=== PATIENT | female | born 1970 | race African-American/Black ===

== ENCOUNTER 2016-10-31 07:18 | Day surgery (SDC) | payer OTHER ==
[~2016-10-31] VITALS: Ht 162.6 cm; Wt 71.0 kg
[2016-10-31] VITALS (19 sets, daily range): BP systolic 104–138; BP diastolic 75–91; PULSE 94–122; RESP 9–27; Ht 162.6 cm; Wt 71.0 kg
[~2016-10-31 07:18] MED LIST: [UNRECOGNIZED DRUG - CODE]
[2016-10-31] MEDS ORDERED: BENA20TA48 PO (09:24)
[2016-10-31] MEDS ORDERED: LORA10CA PO (09:24)
[2016-10-31] MEDS ORDERED: SOD CHLORIDE 0.9% 1,000 ML IV SCH (12:30)
[2016-10-31] MEDS ORDERED: CEFAZOLIN 1 GM/50 ML (PMX) 50 ML IVPB ONE (12:30)
[2016-10-31] MEDS ORDERED: PROPOFOL 20 ML ONE (15:11)
[2016-10-31] MEDS ORDERED: MIDAZOLAM 1 MG/ML 2 ML INJ ONE (15:11)
[2016-10-31] MEDS ORDERED: FENTAnyl 50 MCG/ML VIAL ONE (15:12)
[2016-10-31] MEDS ORDERED: PHENYLephrine (100 MCG/ML) 5ML SYG ONE ×3 (15:26→16:10)
[2016-10-31] MEDS ORDERED: ISOSULFAN BLUE 1% 5 ML INJ SC ONE (15:28)
[2016-10-31] MEDS ORDERED: CEFAZOLIN 1 GM INJ ONE (15:28)
[2016-10-31] MEDS ORDERED: FAMOTIDINE 20 MG INJ ONE (15:35)
[2016-10-31] MEDS ORDERED: ONDANSETRON 4 MG INJ ONE (15:35)
[2016-10-31] MEDS ORDERED: DEXAMETHASONE 4 MG/ML 1 ML INJ ONE (15:35)
[2016-10-31] MEDS ORDERED: MEPERIDINE 25 MG INJ IV PRN (16:30)
[2016-10-31] MEDS ORDERED: DIPHENHYDRAMINE 50 MG INJ IV PRN (16:30)
[2016-10-31] MEDS ORDERED: HYDROmorphONE (0.2 MG/ML) 10ML SYG IV PRN (16:30)
[2016-10-31] MEDS ORDERED: PROCHLORPERAZINE 10 MG INJ IV PRN (16:30)
[2016-10-31] MEDS ORDERED: ACETAMINOPHEN 1000MG/100ML IV 100 ML IVPB PRN (17:00)
[2016-10-31] MEDS ORDERED: ONDANSETRON 4 MG INJ IV PRN (17:00)
[2016-10-31] MEDS: HYDROmorphONE (0.2 MG/ML) 10ML SYG IV PRN ×5 (17:06→18:45)
--- NOTE | 2016-10-31 20:17 | OPR ---
DATE OF OPERATION: 10/31/2016 PREOPERATIVE DIAGNOSIS: Invasive cancer, left breast. POSTOPERATIVE DIAGNOSIS: Invasive cancer, left breast. OPERATION PERFORMED: Left needle-directed partial mastectomy and axillary dissection utilizing sentinel lymph node technique. ANESTHESIA: General. ANESTHESIOLOGIST: Hermes Harvey DO SURGEON: Marcus Gustafson MD TEAROOM HOSTESS: Markell John MD INDICATIONS FOR PROCEDURE: The patient is a 46-year-old female who presented with a greater than 2 cm tumor in her left breast. She was HER2-positive and medical oncologist elected to treat her with neoadjuvant chemotherapy. She completed her chemotherapy with very good response. She was counseled as to the risks versus benefits of partial mastectomy and axillary dissection utilizing sentinel lymph node technique. She consented and was scheduled for surgery. DESCRIPTION OF PROCEDURE: On the morning of surgery, the patient presented to [facility] where she underwent localization of the previously placed biopsy clip performed by attending [facility] radiologist, Dr. Laurence Posey. Subsequently, she was brought to the operating theater, placed under general anesthesia. The left breast and axillary regions were prepped and draped in usual sterile fashion. Approximately 4 mL of 1% Lymphazurin blue dye was then injected peritumorally and the breast was gently massaged for approximately 12 minutes. A 4 cm incision was then made in the left axillary hairline. Subcutaneous tissue was dissected with cautery down through the clavipectoral fascia. A dye-stained lymphatic was identified and found to be traced to what appeared to be enlarged lymph nodes. There were several other lymph nodes noted in this area and Dr. Gustafson made the decision to resect these lymph nodes with blunt dissection along the chest wall. The long thoracic nerve was identified and kept out of harm's way. More superiorly, the axillary vein and thoracodorsal neurovascular bundle was identified and kept out of harm's way. Node bearing tissue between the 2 nerves was then meticulously dissected with the LigaSure device. In this fashion level 1 and level 2 lymph nodes were harvested. Final connective tissue attachments at latissimus dorsi muscle were then transected with cautery. Specimen was removed and sent for permanent pathologic analysis. The wound was irrigated. Minimal bleeding was controlled with cautery, and a #10 flat Landry-Uribe drain was then brought through the left mid axillary line, cut to size, laid within the axilla and secured in place with 2-0 nylon suture in the standard fashion. The skin was then reapproximated with 4-0 Vicryl suture in subcuticular fashion and Dermabond was applied. Attention was then directed to performing the partial mastectomy. The previously placed localization wire was in the upper outer quadrant of the breast. A curvilinear incision was made in this area and subcutaneous tissue was dissected with cautery. The skin edges were then elevated with skin hooks and wide circumferential dissection of the tissue associated with the wire then took place using cautery. Specimen was elevated, transected, oriented, and sent for radiographic confirmation of capture of the clip. Capture was confirmed. Specimen was then sent for permanent pathologic analysis. The wound was irrigated. Minimal bleeding was controlled with cautery, and the skin was reapproximated with 4-0 Vicryl suture in subcuticular fashion and Dermabond was applied. The patient tolerated the procedure well. Estimated blood loss was 50 mL. There were no complications. The patient was transported in stable condition to the recovery room where circumferential compression dressing was applied. Dictated By: MARCUS BUITRAGO/DENNIS Conf#: [id number] DID#: [id number] ROBIN
[2016-10-31] MEDS: D5W-0.45 NACL + KCL 20 MEQ 1,000 ML IV SCH ×2 (20:41→23:54)
[2016-11-01] MEDS: morphine 2 MG INJ IV PRN ×3 (01:18→07:58)
--- NOTE | 2016-11-01 02:59 | HP ---
DATE OF ADMISSION: 10/31/2016 CHIEF COMPLAINT AND HISTORY OF PRESENT ILLNESS: The patient is a 46-year-old female with history of left breast tumor, status post biopsy which was positive for cancer. The patient underwent neoadju vant chemotherapy and after completion of chemotherapy, the patient was noted to have a good respons e. The patient was brought to the hospital today and underwent left needle-directed partial mastect snatiago and axillary dissection. The patient postoperatively had significant pain; therefore, the patie nt is being admitted for further evaluation and management. The patient denied any history of heada miriam, dizziness, syncope. No history of sore throat. No history of recent fever or chills. No hist ory of abdominal pain. No history of chest pain. The patient does have history of hypertension for which she has been taking benazepril and occasionally takes Claritin for allergies. No reported he adache, dizziness, syncope. No history of focal weakness. REVIEW OF SYSTEMS: Rest of review of systems unremarkable. PAST MEDICAL HISTORY: As stated above. ALLERGIES: NONE. SOCIAL HISTORY: No smoking, no alcohol. FAMILY HISTORY: Noncontributory. PHYSICAL EXAMINATION: GENERAL: The patient is conscious, awake, alert. VITAL SIGNS: Temperature 98.5, pulse 95, respirations 15, blood pressure 127/80, O2 saturation 100% on room air. HEENT: Conjunctivae and lids are normal. Oropharynx clear. NECK: Supple. No mass, no thyromegaly. CHEST: Fairly clear. No use of accessory muscles. CARDIOVASCULAR: S1, S2 normal. No murmur, gallop, or rub. ABDOMEN: Soft, nondistended, nontender. Bowel sounds present. EXTREMITIES: No leg edema. NEUROLOGIC: The patient is awake, alert, fairly oriented with no gross focal deficit. IMPRESSION: 1. Left breast cancer status post neoadjuvant chemotherapy and today underwent left partial mastect santiago and axillary dissection. 2. Hypertension. PLAN: The patient admitted to the medical floor. The patient will be started on a clear liquid t, which will be advanced as tolerated. The patient's pain will be controlled with IV Dilaudid and IV morphine. We will hold off on benazepril for now as the patient's blood pressure is reasonably c ontrolled. The patient will use SCDs for DVT prophylaxis. The patient meanwhile will be given IV f luids and IV Zofran on p.r.n. basis for nausea and vomiting. Further recommendations will depend on patient's hospital course. Discharge planning once the patient is cleared by surgery. Dictated By: SUSAN MORENO/DENNIS Conf#: [id number] DID#: [id number]
[2016-11-01] MEDS: D5W-0.45 NACL + KCL 20 MEQ 1,000 ML IV SCH (05:13)
[2016-11-01 07:45] VITALS: BP 120/72; RESP 18
[2016-11-01] MEDS ORDERED: HYDROCODONE/APAP (5/325) TAB NGT PRN ×2 (11:30)
[2016-11-01 12:34] LABS: ADD SCAN DIFF NO
[2016-11-01 12:47] LABS: BASOPHILS % 0.2 % (0.0-2.0); EOSINOPHILS % 0.6 % (0.0-7.0); HEMATOCRIT 26.5 % (37.0-47.0); HEMOGLOBIN 8.5 g/dl (12.0-16.0); LYMPHOCYTES # 1.9 10^3/ul (0.8-2.9); LYMPHOCYTES % 36.9 % (15.0-51.0); MEAN CORPUSCULAR HEMOGLOBIN 33.9 pg (29.0-33.0); MEAN CORPUSCULAR HGB CONC 32.1 g/dl (32.0-37.0); MEAN CORPUSCULAR VOLUME 105.6 fl (82.0-101.0); MEAN PLATELET VOLUME 8.8 fl (7.4-10.4); MONOCYTE # 0.7 10^3/ul (0.3-0.9); NEUTROPHIL # 2.5 10^3/ul (1.6-7.5); NEUTROPHILS % 49.1 % (39.0-77.0); PLATELET COUNT 238 10^3/UL (140-415); RED BLOOD COUNT 2.51 10^6/ul (4.20-5.40); RED CELL DISTRIBUTION WIDTH 15.5 % (11.5-14.5); WHITE BLOOD COUNT 5.2 10^3/ul (4.8-10.8)
[2016-11-01 13:21] LABS: CALCIUM 8.6 mg/dl (8.4-10.2); CREATININE 0.63 mg/dl (0.44-1.00); POTASSIUM 3.8 mmol/L (3.5-5.1)
--- NOTE | 2016-11-01 15:10 | PN ---
DATE: 11/01/2016 Postop day #1 status post left partial mastectomy with axillary dissection. SUBJECTIVE: Feels okay. No problem. Some continuous pain in the axillary area on the left side whi ch is being held by medication but does not go totally away. PHYSICAL EXAMINATION: VITAL SIGNS: Temperature 98.6, heart rate 86, respiration 18, blood pressure 120/72, saturation 96% on room air. LABORATORY: WBC 5200, hemoglobin 8.5, hematocrit 36.5. BUN and creatinine, sodium and potassium ar e normal. The dressing is intact. The patient can move left arm, left elbow and left hand fingers completely. ASSESSMENT: Postoperative day #1 status post left partial mastectomy and axillary dissection. PLAN: The patient is stable. She has tolerated food and has been out of bed. No fever. She can be discharged home. The instruction for care of the Landry-Uribe was given to the patient by me an d by the nurse and she stated that she understands that she is going to change the drain it at home and record it. She is going to call Dr. Gustafson' office and make an appointment for followup. Dictated By: ONEL ALDANA MD PS/NTS Conf#: [id number] DID#: [id number]
--- NOTE | 2016-11-04 05:30 | DS ---
DATE OF ADMISSION: 10/31/2016 DATE OF DISCHARGE: 11/01/2016 FINAL DIAGNOSES: 1. Left breast cancer status post neoadjuvant chemotherapy and left partial mastectomy and axillary dissection. 2. Hypertension. For history and physical, please refer to the history and physical from 10/31/2016. HOSPITAL COURSE: The patient is a 46-year-old female with history of left breast tumor with biopsy confirmed cancer. The patient underwent neoadjuvant chemotherapy with good response. The patient w as brought to the hospital and underwent left needle-directed partial mastectomy and axillary dissec tion. Postoperatively, the patient experienced significant pain and was admitted for further evalua tion and management. The patient was given IV morphine and Tylenol for pain which was subsequently switched to [place]. Th e patient was also given Zofran p.r.n. for nausea. The patient's condition gradually improved, pain was well controlled, and the patient was discharged home. CONDITION ON DISCHARGE: Hemodynamically stable. ACTIVITY: As patient tolerates. DIET: 2 g sodium diet. DISCHARGE MEDICATIONS: The patient was given prescription for [place] p.r.n. for pain. The patient i s continued on her home medications of benazepril and Claritin. The patient is instructed to follow up with Dr. Gustafson in postoperative appointment next week. Interdisciplinary plan of care was established for this patient. Plan of care was discussed with Dr Jeyson Byrd. Dictated By: WILL DO INSIDE SALES ACCOUNT EXECUTIVE for SUSAN BYRD MD SR/NTS Conf#: [id number] DID#: [id number]
== END 2016-11-01 15:41 | disposition home or self-care (01) ==
LOC: SDS 07:18 → PP2 18:56 → SDS 11-01 15:41
PROVIDERS: ATTEND Surgery Surgical Oncology
DX: C50.912 Malignant neoplasm of unspecified site of left female breast (principal)
CPT/HCPCS: 19301; 38500; 38792; 80048; 85025; 88307; J0690; J1100; J1170; J2250; J2270; J2370; J2405; J3010; J3480; Z7512; Z7610; Q9968

== ENCOUNTER 2016-11-13 23:13 | Inpatient (IN) | payer OTHER ==
[~2016-11-13] VITALS: Ht 162.6 cm; Wt 71.7 kg
[~2016-11-13 23:13] MED LIST changes: +BENA20TA48 PO; +LORA10CA PO; -[UNRECOGNIZED DRUG - CODE]
[2016-11-14] MEDS ORDERED: CEFTRIAXONE 1 GM/50 ML (PMX) 50 ML IVPB STA (01:26)
[2016-11-14] MEDS ORDERED: VANCOMYCIN 1 GM (PMX) 250 ML IVPB ONE (01:30)
--- NOTE | 2016-11-14 01:31 | ERA ---
ER Documentation Chief Complaint Date/Time DATE: 11/14/16 TIME: 01:28 Chief Complaint left breast incision is leaking and not going to the drainage tube HPI Patient is a 46-year-old female 2 weeks status post lumpectomy with lymph node dissection of the left breast who presents with leaking of fluid from around a drain site. The patient saw her surgeon, Dr. Gustafson yesterday, and he was able to the tubing of debris, and the drain was draining normally at that time. Prior to yesterday, the drain bulb would require emptying every 3 hours. It is now filling up only once to twice every day, but she is soaking through multiple layers of clothing. She denies fever, vomiting. She has not noticed any increased redness or swelling to the area. ROS All systems reviewed and are negative except as per history of present illness. Medications Home Meds Reported Medications Loratadine* (Claritin*) 10 Mg Capsule, 10 MG PO DAILY, CAP 10/31/16 Benazepril Hcl* (Benazepril Hcl*) 20 Mg Tablet, 20 MG PO DAILY, #30 TAB 10/31/16 Allergies Allergies: Coded Allergies: No Known Drug Allergies (Verified Allergy, Mild, 10/31/16) PMhx/Soc Past medical history: Breast cancer Past surgical history: Lumpectomy with lymph node dissection Social history: Occasional alcohol, no tobacco History of Surgery: Yes (tonsillectomy @ 21 yo, lumpectomy/lymphectomy 10/31/16) Anesthesia Reaction: No Hx Neurological Disorder: No Hx Respiratory Disorders: Yes (bronchitis ) Hx Cardiac Disorders: Yes (htn ) Hx Psychiatric Problems: No Hx Miscellaneous Medical Probl: Yes (left breast ca, last chemo 08/2016) Hx Alcohol Use: Yes (occasionally ) Hx Substance Use: No Hx Tobacco Use: No Smoking Status: Never smoker FmHx Family History: No coronary disease, No diabetes Physical Exam Vitals Vital Signs Date Time Temp Pulse Resp B/P Pulse Ox O2 Delivery O2 Flow Rate FiO2 11/14/16 02:30 91 17 103/64 100 Room Air 11/14/16 02:00 98.2 89 18 99/63 100 Room Air 11/13/16 23:20 97.8 107 20 114/77 98 Physical Exam Const: Alert, no acute distress Head: Atraumatic Eyes: Normal Conjunctiva, no pallor, no icterus ENT: Normal External Ears, Nose and Mouth. Neck: Full range of motion..~ No meningismus. Resp: Clear to auscultation bilaterally Cardio: Mild tachycardia, regular rhythm, no murmurs Breast: Erythema and warmth spreading to the mid breast, no crepitance. Small amount of purulent drainage at the drain site and large quantity of serosanguineous drainage. Abd: Soft, non tender, non distended. Skin: No petechiae or rashes Back: No midline or flank tenderness Ext: No cyanosis, or edema Neur: Awake and alert Psych: Normal Mood and Affect Result Diagram: 11/14/16 0145 11/14/16 0145 Results 24 hrs Laboratory Tests Test 11/14/16 01:45 11/14/16 02:15 White Blood Count 14.910^3/ul Red Blood Count 2.6910^6/ul Hemoglobin 9.3g/dl Hematocrit 27.5% Mean Corpuscular Volume 102.2fl Mean Corpuscular Hemoglobin 34.6pg Mean Corpuscular Hemoglobin Concent 33.8g/dl Red Cell Distribution Width 14.9% Platelet Count 73789^3/UL Mean Platelet Volume 9.7fl Neutrophils % 79.6% Lymphocytes % 10.4% Monocytes % 8.7% Eosinophils % 0.4% Basophils % 0.1% Nucleated Red Blood Cells % 0.0/100WBC Neutrophils # 11.910^3/ul Lymphocytes # 1.610^3/ul Monocytes # 1.310^3/ul Eosinophils # 0.110^3/ul Basophils # 0.010^3/ul Nucleated Red Blood Cells # 0.010^3/ul Prothrombin Time 13.9Sec Prothrombin Time Ratio 1.1 INR International Normalized Ratio 1.07 Activated Partial Thromboplast Time 29.4Sec Sodium Level 133mmol/L Potassium Level 3.2mmol/L Chloride Level 97mmol/L Carbon Dioxide Level 27mmol/L Anion Gap 12 Blood Urea Nitrogen 15mg/dl Creatinine 0.85mg/dl Glucose Level 112mg/dl Lactic Acid Level 0.7mmol/L Calcium Level 8.9mg/dl Total Bilirubin 0.1mg/dl Direct Bilirubin 0.00mg/dl Indirect Bilirubin 0.1mg/dl Aspartate Amino Transf (AST/SGOT) 19IU/L Alanine Aminotransferase (ALT/SGPT) 25IU/L Alkaline Phosphatase 64IU/L Total Protein 6.8g/dl Albumin 3.3g/dl Globulin 3.50g/dl Albumin/Globulin Ratio 0.94 Serum HCG, Qualitative NEGATIVE Urine Color LT. YELLOW Urine Clarity CLEAR Urine pH 5.5 Urine Specific Bowler 1.010 Urine Ketones NEGATIVE Urine Nitrite NEGATIVE Urine Bilirubin NEGATIVE Urine Urobilinogen 0.2 E.U./dL Urine Leukocyte Esterase 1+ Urine Microscopic RBC 0-2/HPF Urine Microscopic WBC 5-10/HPF Urine Squamous Epithelial Cells FEW Urine Bacteria RARE Urine Hemoglobin NEGATIVE Urine Glucose NEGATIVE% Urine Total Protein NEGATIVE Current Medications Medications (Trade) Dose Ordered Sig/Ramses Route PRN Reason Start Time Stop Time Status Last Admin Dose Admin Vancomycin HCl 250 ml @ 125 mls/hr ONCE ONCE IVPB 11/14/16 01:30 11/14/16 03:29 11/14/16 02:20 Ceftriaxone Sodium (Rocephin) 50 ml @ 100 mls/hr ONCE STAT IVPB 11/14/16 01:26 11/14/16 01:55 DC 11/14/16 01:55 Morphine Sulfate (morphine) 6 mg ONCE ONCE IV 11/14/16 02:00 11/14/16 02:01 DC 11/14/16 01:46 Ondansetron HCl (Zofran Inj) 4 mg ONCE STAT IV 11/14/16 01:43 11/14/16 01:44 DC 11/14/16 01:46 Hydromorphone HCl 1 mg 1 mg ONCE ONCE IV 11/14/16 02:22 11/14/16 02:23 DC 11/14/16 02:26 Sodium Chloride (NS) 1,000 ml @ 1,000 mls/hr Q1H ONCE IV 11/14/16 02:30 11/14/16 03:29 11/14/16 02:26 Ondansetron HCl (Zofran Inj) 4 mg BRIDGE ORDER PRN IV NAUSEA AND/OR VOMITING 11/14/16 03:00 11/15/16 02:59 Acetaminophen (Tylenol Tab) 650 mg ER BRIDGE PRN PO MILD PAIN/FEVER 11/14/16 03:00 11/15/16 02:59 Procedures/MDM EKG read by me: Time 224, rate 94 Rhythm: Normal sinus [place]: Normal Intervals: Normal ST-T waves: no ischemic changes Ectopy: No Q-waves: No Impression: No evidence of ischemia or arrhythmia, low voltage MDM: Patient is a 46-year-old female with recent lumpectomy and lymph node dissection of left breast who presents to the ER with drainage of large quantity of fluid from the surgical site and clogged strain. There is a small amount of purulent drainage from the wound site, and there is erythema and warmth of the breast. This is suggestive of infected seroma with cellulitis. Patient was given IV antibiotics. Blood cultures and wound culture were sent. IV fluids were given. There is no evidence of sepsis. The patient will be admitted for IV antibiotics and surgical consultation with Dr. Gustafson. I discussed the case with Dr. Hanson, who will admit the patient. Departure Diagnosis: Primary Impression: Cellulitis of breast Additional Impressions: Seroma infection, postoperative Hypokalemia Condition: Stable MIGUEL CONCEPCION MD November 14, 2016 01:31
[2016-11-14] MEDS ORDERED: ONDANSETRON 4 MG INJ IV STA (01:43)
[2016-11-14 02:00] VITALS: TEMP 98.2
[2016-11-14] MEDS ORDERED: morphine 10 MG INJ IV ONE (02:00)
[2016-11-14 02:04] LABS: ADD SCAN DIFF NO
[2016-11-14 02:07] LABS: BASOPHILS % 0.1 % (0.0-2.0); EOSINOPHILS # 0.1 10^3/ul (0.0-0.5); EOSINOPHILS % 0.4 % (0.0-7.0); HEMATOCRIT 27.5 % (37.0-47.0); HEMOGLOBIN 9.3 g/dl (12.0-16.0); LYMPHOCYTES # 1.6 10^3/ul (0.8-2.9); LYMPHOCYTES % 10.4 % (15.0-51.0); MEAN CORPUSCULAR HEMOGLOBIN 34.6 pg (29.0-33.0); MEAN CORPUSCULAR HGB CONC 33.8 g/dl (32.0-37.0); MEAN CORPUSCULAR VOLUME 102.2 fl (82.0-101.0); MEAN PLATELET VOLUME 9.7 fl (7.4-10.4); MONOCYTE # 1.3 10^3/ul (0.3-0.9); MONOCYTES % 8.7 % (0.0-11.0); NEUTROPHIL # 11.9 10^3/ul (1.6-7.5); NEUTROPHILS % 79.6 % (39.0-77.0); PLATELET COUNT 227 10^3/UL (140-415); RED BLOOD COUNT 2.69 10^6/ul (4.20-5.40); RED CELL DISTRIBUTION WIDTH 14.9 % (11.5-14.5); WHITE BLOOD COUNT 14.9 10^3/ul (4.8-10.8)
[2016-11-14 02:21] LABS: INR 1.07; PROTIME 13.9 Sec (12.2-14.2); PT RATIO 1.1
[2016-11-14 02:22] LABS: PARTIAL THROMBOPLASTIN TIME 29.4 Sec (25.0-35.0)
[2016-11-14] MEDS ORDERED: HYDROmorphONE 1 MG/ML SYG IV ONE (02:22)
[2016-11-14 02:26] LABS: ALBUMIN 3.3 g/dl (3.3-4.9); ALBUMIN/GLOBULIN RATIO 0.94; BILIRUBIN,INDIRECT 0.1 mg/dl (0-1.1); BILIRUBIN,TOTAL 0.1 mg/dl (0.2-1.3); CALCIUM 8.9 mg/dl (8.4-10.2); CREATININE 0.85 mg/dl (0.44-1.00); POTASSIUM 3.2 mmol/L (3.5-5.1); TOTAL PROTEIN 6.8 g/dl (6.1-8.1)
--- NOTE | 2016-11-14 02:26 | RADRPT ---
PROCEDURE: XR Chest. CLINICAL INDICATION: Sepsis. TECHNIQUE: Single frontal chest x-ray. COMPARISON: None. FINDINGS: Right internal jugular central venous line tip in the SVC is present.. There is no congestive heart failure.. There is minimal right basilar atelectasis. No focal infiltrate is seen. There is no pl eural effusion. There is no pneumothorax. The osseous structures are unremarkable. IMPRESSION: Right internal jugular central line. Minimal right basilar atelectasis. No definite pneumonia. RPTAT: HMVK .Toribio Linda MD, Date Time Electronically viewed and signed by .Toribio Linda MD, on 11/14/2016 02:26 .K/
[2016-11-14] MEDS ORDERED: SOD CHLORIDE 0.9% 1,000 ML IV ONE (02:30)
[2016-11-14 02:33] LABS: ADD UMIC YES; URINE BILIRUBIN (Dip) NEGATIVE (NEGATIVE); URINE BLOOD (Dip) NEGATIVE (NEGATIVE); URINE COLOR LT. YELLOW (YELLOW); URINE GLUCOSE (Dip) NEGATIVE (NEGATIVE); URINE KETONES (Dip) NEGATIVE (NEGATIVE); URINE LEUKOCYTE ESTERASE (Dip) 1+ (NEGATIVE); URINE NITRITE (Dip) NEGATIVE (NEGATIVE); URINE TOTAL PROTEIN (Dip) NEGATIVE (NEGATIVE); URINE UROBILINOGEN (Dip) 0.2 E.U./dL (0.1-1.0)
[2016-11-14 02:43] LABS: URINE RBCS 0-2 /HPF (0)
[2016-11-14 02:44] LABS: BACTERIA,URINE RARE; SQUAMOUS EPITHELIAL CELL,UR FEW
[2016-11-14] MEDS ORDERED: ONDANSETRON 4 MG INJ IV PRN (03:00)
[2016-11-14] MEDS ORDERED: ACETAMINOPHEN 325 MG TAB PO PRN ×2 (03:00→05:30)
[2016-11-14] MEDS ORDERED: POTASSIUM CHLORIDE 20 MEQ POWDER FOR ORAL SOLN PO ONE (03:30)
[2016-11-14 04:36] VITALS: Ht 162.6 cm; Wt 71.7 kg
[2016-11-14] MEDS ORDERED: CEFTRIAXONE 1 GM INJ IVPB ONE (05:30)
[2016-11-14] MEDS: SOD CHLORIDE 0.9% 1,000 ML IV SCH ×2 (05:57→18:50)
[2016-11-14] MEDS: PANTOPRAZOLE (EC) 40 MG TAB PO SCH (05:57)
[2016-11-14] MEDS: morphine 2 MG INJ IV PRN (06:05)
[2016-11-14 06:45] VITALS: BP 96/57; PULSE 90; RESP 18
[2016-11-14 07:35] VITALS: BP 106/60; RESP 20
[2016-11-14] MEDS: HYDROmorphONE 1 MG/ML SYG IV PRN ×4 (09:33→23:09)
[2016-11-14] MEDS ORDERED: SOD CHLORIDE 0.9% 500 ML IV ONE (14:00)
[2016-11-14] MEDS ORDERED: PIPER-TAZO 3.375 GM IV (PMX) 100 ML IVPB SCH (14:30)
[2016-11-14] MEDS: HYDROCODONE/APAP (10/325) TAB PO PRN ×2 (16:25→20:46)
--- NOTE | 2016-11-14 16:30 | CONS ---
DATE OF ADMISSION: 11/14/2016 DATE OF CONSULTATION: 11/14/2016 TYPE OF CONSULTATION: Surgical. REQUESTING PHYSICIAN: Dr. Gustafson. I am covering for Dr. Gustafson and seeing the patient for in consult ation. HISTORY OF PRESENT ILLNESS: This is a 46-year-old female who underwent a left breast operation 2 we eks ago for cancer of the left breast with a needle-directed partial mastectomy and axillary dissect ion. She came to the emergency room last night complaining of too much leakage of fluid from the si te of the drain and also more pain in the axilla and on the lateral side of the left breast, and gen eralized pain and aches here and there. Also she states that she has had a feeling of chills in the past several days. She is not sure about a fever. No nausea, no vomiting. In emergency room she was evaluated by the emergency room physician and was found to have leukocytosis and also was seen t o have erythema and warmth of the left breast, so with an impression of cellulitis of the left breas t and possibly infected seroma, she was admitted. Antibiotic was started. HISTORY OF PRESENT ILLNESS: As was mentioned, 2 weeks ago the patient underwent a left partial maste ctomy, needle directed, and axillary dissection sentinel lymph node technique for cancer of the left breast status post chemotherapy, neoadjuvant. She was doing fine. There was too much drainage. T he patient was seen in Dr. Gustafson' office 2 days ago and the tubing apparently had clogged and that w as why it was draining around the tubing. So Dr. Gustafson did declogging of the tubing and it was func tioning, but she felt that it was too much drainage and also for the pain she came to the emergency room last night. REVIEW OF SYSTEMS: As above. MEDICATIONS: Loratadine and Benazepril 10 mg. ALLERGIES: NOT KNOWN. FAMILY HISTORY: Not contributory. PHYSICAL EXAMINATION: GENERAL: The patient is alert, awake, oriented x3. VITAL SIGNS: Today on the floor temperature is 98.6, heart rate is 80, respirations 20, blood press ure 106/60, saturations 96% on room air. HEENT: Head and neck within normal limits. CHEST: Symmetrical expansion of the hemithoraces. There is a port under the skin on the right ches t wall. Left breast the incision has healed properly so far. There is a Landry-Uribe drain in the left axillary area. The tubing is not clogged and it is draining serous fluid. There is edema, er ythema, warmth of the skin of the left lateral breast and slight tenderness. ABDOMEN: Soft. LOWER EXTREMITIES: No pitting edema. No calf tenderness. LABORATORY: On admission at 1:00 a.m. in the morning today, WBC was 14,900, with 79% segmented, brendan ft to the left, hemoglobin 9.3, hematocrit 27.5. Platelets 227. Chemistry: Sodium and potassium a re slightly low. Total bilirubin is 0.1. Creatinine and BUN normal. Albumin 3.3. MICROBIOLOGY: The Gram stain from the wound culture revealed gram-positive cocci in pairs, 2+ gram- negative and positive rods 1+. No culture available. Chest x-ray was done early interventionist today. Right internal jugular central line, minimal right basila r atelectasis. No definite pneumonia. Impression of: 1. Status post partial mastectomy on the left side for cancer of the breast. Status post chemother apy. 2. Cellulitis of the left breast. 3. Possible infected seroma in the cavity of the partial mastectomy. The patient was started on an antibiotic by Dr. Hanson, but we changed the antibiotic today to Zosyn and Bactrim, covering the possibility of MRSA. FUTURE PLAN: Will keep the patient n.p.o. after midnight, considering the possibility of interventio n to drain the seroma, if considering the patient's seroma is infected and if the patient's conditio n gets worse. Discussed with the patient all the findings and plan. Dictated By: ONEL CALLAHAN/DENNIS Conf#: [id number] DID#: [id number]
[2016-11-14] MEDS: TRIMETHOPRIM/SULFAMETHOXAZOLE 15 ML in DEXTROSE 5% 500 ML IVPB SCH (18:20)
--- NOTE | 2016-11-14 19:29 | QN ---
Documentation Comment [id number] AURELIA ALLISON MD November 14, 2016 19:29
[2016-11-14 19:46] VITALS: BP 90/53; RESP 16
[2016-11-14 21:30] VITALS: BP 98/60; PULSE 92
--- NOTE | 2016-11-14 22:14 | HP ---
DATE OF ADMISSION: 11/14/2016 HISTORY OF PRESENT ILLNESS: A 46-year-old female who has a history of left breast surgery a few weeks ago. The patient has a partial mastectomy and axillary dissection per patient by Dr. Gustafson. The patient came to this hospital complaining of pain and feeling chills. The patient was seen by Dr. Merrick Richards in the ER with complaints of leaking of the fluid from around the drain site. The patient was instructed to be admitted for further management since patient has more discharge and pain from the left breast area. The patient's WBC 14.9, hematocrit 27.5, sodium 133, potassium 3.2. The patient received vancomycin and Rocephin, morphine, Zofran, hydromorphone and IV fluid in the ER. PAST MEDICAL HISTORY: Positive for breast cancer, status post surgery. The patient has history of hypertension. ALLERGY HISTORY: LISTED NEGATIVE. FAMILY HISTORY: Positive for breast cancer. SOCIAL HISTORY: Negative. MEDICATIONS: 1. Benazepril. 2. Loratadine. REVIEW OF SYSTEMS: HEENT: Unremarkable. RESPIRATORY: Unremarkable. ABDOMEN: Unremarkable. EXTREMITIES: Unremarkable. CENTRAL NERVOUS SYSTEM: Unremarkable. MUSCULOSKELETAL: Body ache. SKIN: As mentioned above. PHYSICAL EXAMINATION: GENERAL: The patient is awake, alert. VITAL SIGNS: Pulse 90, blood pressure 96/57. HEAD: Atraumatic, normocephalic. Pupils equal, reactive to light. NECK: Supple. No JVD. LUNGS: Clear. CARDIOVASCULAR: S1, S2 are normal. ABDOMEN: Soft, nontender. EXTREMITIES: No cyanosis, clubbing, edema. CENTRAL NERVOUS SYSTEM: The patient is awake, alert, no focal deficit. SKIN: The patient's skin left breast area CALOS drainage noted with some erythema noted and there is some drainage noted from the site. LABORATORY DATA: As mentioned above. Sodium 133, potassium 3.2, being replaced. The patient's chest x-ray shows right internal jugular central line, minimal right basilar atelectasis. IMPRESSION: 1. Left chest wall possible cellulitis and fluid collection, doubt abscess. 2. Left breast mastectomy, partial per patient. Other diagnoses include hypertension history, hyponatremia, hypokalemia and leukocytosis. The patient' s other diagnoses include patient has a left breast cancer status post neoadjuvant chemotherapy and left partial mastectomy and axillary dissection. The patient's other diagnoses include history of hypertension. PLAN: To continue to give this patient IV fluid, antibiotic. The patient is currently on Rocephin. The patient is also started on Septra. Pain medication will be followed. Potassium supplementation orders were done. The patient will have SCD to the legs. Dictated By: AURELIA ALLISON MD BS/NTS Conf#: [id number] DID#: [id number]
[2016-11-14] MEDS: PIPER-TAZO 3.375 GM IV (PMX) 100 ML IVPB SCH (23:09)
[2016-11-15] MEDS: HYDROCODONE/APAP (10/325) TAB PO PRN ×4 (01:23→14:39)
[2016-11-15] MEDS ORDERED: CEFTRIAXONE 1 GM/50 ML (PMX) 50 ML IVPB ONE (02:00)
[2016-11-15] MEDS: SOD CHLORIDE 0.9% 1,000 ML IV SCH (02:18)
[2016-11-15] MEDS: HYDROmorphONE 1 MG/ML SYG IV PRN ×5 (03:33→20:32)
[2016-11-15] MEDS: PANTOPRAZOLE (EC) 40 MG TAB PO SCH (05:20)
[2016-11-15] MEDS: PIPER-TAZO 3.375 GM IV (PMX) 100 ML IVPB SCH ×4 (05:21→23:34)
[2016-11-15 05:29] LABS: ADD SCAN DIFF NO
[2016-11-15 05:34] LABS: BASOPHILS % 0.2 % (0.0-2.0); EOSINOPHILS # 0.1 10^3/ul (0.0-0.5); EOSINOPHILS % 0.6 % (0.0-7.0); HEMATOCRIT 24.4 % (37.0-47.0); LYMPHOCYTES % 20.8 % (15.0-51.0); MEAN CORPUSCULAR HGB CONC 32.8 g/dl (32.0-37.0); MEAN CORPUSCULAR VOLUME 103.8 fl (82.0-101.0); MEAN PLATELET VOLUME 9.8 fl (7.4-10.4); MONOCYTE # 0.9 10^3/ul (0.3-0.9); NEUTROPHIL # 6.6 10^3/ul (1.6-7.5); NEUTROPHILS % 68.8 % (39.0-77.0); PLATELET COUNT 218 10^3/UL (140-415); RED BLOOD COUNT 2.35 10^6/ul (4.20-5.40); RED CELL DISTRIBUTION WIDTH 14.9 % (11.5-14.5); WHITE BLOOD COUNT 9.6 10^3/ul (4.8-10.8)
[2016-11-15 05:53] LABS: CALCIUM 8.6 mg/dl (8.4-10.2); CREATININE 0.74 mg/dl (0.44-1.00); POTASSIUM 3.3 mmol/L (3.5-5.1)
[2016-11-15] MEDS: TRIMETHOPRIM/SULFAMETHOXAZOLE 15 ML in DEXTROSE 5% 500 ML IVPB SCH ×5 (06:25→21:21)
[2016-11-15 07:40] VITALS: BP 101/58; RESP 20
[2016-11-15] MEDS ORDERED: POTASSIUM CHLORIDE (SR) 20 MEQ TAB PO STA (10:24)
--- NOTE | 2016-11-15 10:29 | PN ---
Date/Time of Note Date/Time of Note DATE: 11/15/16 TIME: 10:26 Assessment/Plan VTE Prophylaxis VTE Prophylaxis Intervention: ambulation Lines/Catheters IV Catheter Type (from [facility]): Vishnu cath Central line still needed: Yes Assessment/Plan Chief Complaint/Hosp Course 1. Left chest wall cellulitis and fluid collection, doubt abscess. 2. Left breast partial mastectomy, partial per patient. 3. Hypertension 4. hypokalemia and 5. Leukocytosis. Problems: Assessment/Plan 1. resume regular diet 2. Possible surgery on Friday 3. ID consult dr Pierce Subjective 24 Hr Interval Summary Constitutional: improved, no complaints Eyes: no complaints ENT: no complaints Respiratory: no complaints Cardiovascular: no complaints Skin: other (left chest wall pain) Exam/Review of Systems Vital Signs Vitals Vital Signs Date Time Temp Pulse Resp B/P Pulse Ox O2 Delivery O2 Flow Rate FiO2 11/15/16 07:40 98.2 76 20 101/58 96 11/14/16 06:45 Room Air Intake and Output 11/14/16 11/14/16 11/15/16 15:00 23:00 07:00 Intake Total 787 ml 2055 ml 2215 ml Output Total 20 ml Balance 787 ml 2055 ml 2195 ml Exam Constitutional: alert, oriented Psych: no complaints ENMT: nl external ears & nose Neck: supple Respiratory: clear to auscultation Cardiovascular: regular rate and rhythm Gastrointestinal: soft Genitourinary - Female: nl adnexae Skin: other (wound with dressing on it with CALOS ) Results Result Diagram: 11/15/16 0445 11/15/16 0445 Results 24 hrs Laboratory Tests Test 11/15/16 04:45 White Blood Count 9.6 # Red Blood Count 2.35 L Hemoglobin 8.0 L Hematocrit 24.4 L Mean Corpuscular Volume 103.8 H Mean Corpuscular Hemoglobin 34.0 H Mean Corpuscular Hemoglobin Concent 32.8 Red Cell Distribution Width 14.9 H Platelet Count 218 Mean Platelet Volume 9.8 Neutrophils % 68.8 Lymphocytes % 20.8 Monocytes % 9.0 Eosinophils % 0.6 Basophils % 0.2 Nucleated Red Blood Cells % 0.0 Neutrophils # 6.6 Lymphocytes # 2.0 Monocytes # 0.9 Eosinophils # 0.1 Basophils # 0.0 Nucleated Red Blood Cells # 0.0 Sodium Level 132 L Potassium Level 3.3 L Chloride Level 101 Carbon Dioxide Level 25 Anion Gap 9 Blood Urea Nitrogen 6 #L Creatinine 0.74 Glucose Level 86 Calcium Level 8.6 Medications Medications Current Medications Pantoprazole (Protonix Tab) 40 mg DAILY@06 PO Last administered on 11/14/16 05 :57; Admin Dose 40 MG; Start 11/14/16 at 06:00 Acetaminophen (Tylenol Tab) 650 mg Q6H PRN PO PAIN AND OR ELEVATED TEMP; Start 11/14/16 at 05:30 Morphine Sulfate (morphine) 2 mg Q4H PRN IV PAIN Last administered on 06:05; Admin Dose 2 MG; Start 11/14/16 at 05:30 Ondansetron HCl (Zofran Inj) 4 mg Q6H PRN IV NAUSEA AND/OR VOMITING; Start at 05:30 Hydromorphone HCl (Dilaudid) 1 mg Q4H PRN IV PAIN Last administered on 08:11; Admin Dose 1 MG; Start 11/14/16 at 09:30 Acetaminophen/ Hydrocodone Bitart ([place] (10/325)) 1 tab Q4H PRN PO PAIN Last administered on 11/15/16 05:21; Admin Dose 1 TAB; Start 11/14/16 at 11:30 Miscellaneous Information BACTRIM IV BID PHARM... ONCE XX ; Start 11/14/16 at 14 :30 Trimethoprim/ Sulfamethoxazole 15 ml/Dextrose 515 ml @ 343.333 mls/hr Q8 IVPB Last administered on 11/15/16 06:25; Admin Dose 343.333 MLS/HR; Start 11/14/16 at 16:30 Piperacillin Sod/ Tazobactam Sod (Zosyn 3.375gm/ 100 ml (Pmx)) 100 ml @ 200 mls /hr Q6 IVPB Last administered on 11/15/16 05:21; Admin Dose 200 MLS/HR; Start 11/15/16 at 00:00 ISAURA BOCANEGRA November 15, 2016 10:29
--- NOTE | 2016-11-15 10:48 | PN ---
DATE: 11/15/2016 SUBJECTIVE: States that she feels better. She states that the pain is under control with IV pain m edication plus [place] 1 tablet in between. OBJECTIVE: GENERAL: Awake, alert, appears comfortable. VITAL SIGNS: Temperature 98.2, heart rate 76, blood pressure 101/58. BREASTS: Landry-Uribe drainage has been 20 mL in the last 24 hours. There has been some oozing fr om the site of the partial mastectomy and I inspected the area. Within the suture line, there is on e spot that it has been oozing so much that it appears that the seroma is almost evacuated completel y. There is still some cellulitis in the lateral aspect of the chest wall between the 2 incisions a nd beyond the inferior incision as well. Some tenderness also exists. The patient can move her lef t arm completely without any difficulty. LABORATORY DATA: Today, sodium 132, potassium 3.3, BUN and creatinine normal. Hematology: WBC carla pped to 9600 with 68% neutrophils, which is normal differential. Hemoglobin also dropped to 8, hemat ocrit 24.4. The blood culture has not been growing anything after 1 day. Wound culture is not avai lable yet. ASSESSMENT: A patient with cellulitis of the left breast, status post partial mastectomy with axill phillip dissection about 2 weeks ago, was admitted because of too much pain, and cellulitis and leukocyt osis. Today, the patient is much better. PLAN: It appears that patient may respond with conservative treatment with just antibiotics. We wi ll continue antibiotics for 2 more days at least, Friday and Friday. We will reevaluate on Friday . If still cellulitis increased or there is any indication, we may proceed with drainage of the ser angus cavity, which is at the site of the partial mastectomy. Dictated By: ONEL CALLAHAN/DENNIS Conf#: [id number] DID#: [id number]
[2016-11-15] MEDS ORDERED: VANCOMYCIN IV PER PHARMACY XX SCH (13:30)
[2016-11-15] MEDS ORDERED: VANCOMYCIN 1.5 GM in SOD CHLORIDE 0.9% 250 ML IVPB SCH (14:30)
[2016-11-15 20:00] VITALS: BP 112/66; RESP 20
[2016-11-15] MEDS: BISACODYL (EC) 5 MG TAB PO SCH (20:31)
[2016-11-15] MEDS: POLYETHYLENE GLYCOL 17 GM PACKET PO SCH (20:31)
[2016-11-15] MEDS: DOCUSATE SODIUM 100 MG CAP PO SCH (20:31)
[2016-11-15] MEDS: ONDANSETRON 4 MG INJ IV PRN (23:34)
[2016-11-16] MEDS: HYDROmorphONE 1 MG/ML SYG IV PRN ×6 (02:09→23:29)
[2016-11-16] MEDS: VANCOMYCIN 750 MG in SOD CHLORIDE 0.9% 150 ML IVPB SCH ×2 (03:13→16:32)
[2016-11-16] MEDS: PIPER-TAZO 3.375 GM IV (PMX) 100 ML IVPB SCH ×3 (05:07→18:42)
[2016-11-16] MEDS: PANTOPRAZOLE (EC) 40 MG TAB PO SCH (05:23)
[2016-11-16 06:10] LABS: ADD SCAN DIFF NO
[2016-11-16 06:15] LABS: BASOPHILS % 0.2 % (0.0-2.0); EOSINOPHILS # 0.1 10^3/ul (0.0-0.5); LYMPHOCYTES # 1.6 10^3/ul (0.8-2.9); LYMPHOCYTES % 25.2 % (15.0-51.0); MEAN CORPUSCULAR HEMOGLOBIN 32.8 pg (29.0-33.0); MEAN CORPUSCULAR VOLUME 102.5 fl (82.0-101.0); MEAN PLATELET VOLUME 9.7 fl (7.4-10.4); MONOCYTE # 0.7 10^3/ul (0.3-0.9); MONOCYTES % 10.9 % (0.0-11.0); NEUTROPHIL # 3.9 10^3/ul (1.6-7.5); NEUTROPHILS % 62.5 % (39.0-77.0); PLATELET COUNT 265 10^3/UL (140-415); RED BLOOD COUNT 2.44 10^6/ul (4.20-5.40); RED CELL DISTRIBUTION WIDTH 14.6 % (11.5-14.5); WHITE BLOOD COUNT 6.3 10^3/ul (4.8-10.8)
[2016-11-16] MEDS: TRIMETHOPRIM/SULFAMETHOXAZOLE 15 ML in DEXTROSE 5% 500 ML IVPB SCH ×3 (06:24→22:19)
[2016-11-16 06:31] LABS: POTASSIUM 3.6 mmol/L (3.5-5.1)
[2016-11-16 06:34] LABS: CALCIUM 9.2 mg/dl (8.4-10.2); CREATININE 0.81 mg/dl (0.44-1.00)
[2016-11-16 06:36] LABS: INR 0.99; PROTIME 13.1 Sec (12.2-14.2)
[2016-11-16 06:37] LABS: PARTIAL THROMBOPLASTIN TIME 33.4 Sec (25.0-35.0)
[2016-11-16 07:40] VITALS: BP 110/81; RESP 18
--- NOTE | 2016-11-16 07:40 | CONS ---
DATE OF ADMISSION: 11/14/2016 DATE OF CONSULTATION: Infectious disease consultation for Justice Pierce MD. REQUESTING PHYSICIAN: Ethan Hanson MD HISTORY OF PRESENT ILLNESS: The patient is a 46-year-old female who was admitted via the emergency room approximately 2 weeks after a left partial mastectomy for carcinoma of the breast. The patient was discharged home with a drainage tube in the breast cavity. She was to begin treatment with alexia adjuvant chemotherapy. Upon arrival in the emergency room, while not febrile she had a white blood cell count of 14,900. Chest x-ray revealed a right internal carotid jugular cath and minimal right base atelectasis. The patient had also complained of fever and chills and leaking from around the l eft breast area. Prior to admission she was found to have a plugged up tube which was unclogged by Dr. Gustafson and then the patient continued to have pain and temperature and presented to the emergency room. The patient begun treatment with vancomycin, ceftriaxone, opioid pain medication. She subse quently had to discontinuance of the ceftriaxone and was begun treatment with Zosyn and vancomycin. Subsequently, when she grew Staphylococcus aureus from the wound and no other organism, the Zosyn w as discontinued and Bactrim-DS every 8 hours was begun. She has had a decrease of the serous draina ge from her tube which is indicating that they there may not be an infected seroma present. Her carol rounding area of cellulitis also improved moderately. She has not been febrile. Her white count becker s fallen to 9600 today. The patient has a past medical history of cancer of the breast, hypertension. She has a family hist ory of carcinoma of the breast. MEDICATIONS: Her medications included 1. Loratadine. 2. Benazepril. PHYSICAL EXAMINATION GENERAL: Revealed a well-developed female in no acute distress. HEENT: The pupils are equal, round, and reactive to light. Extraocular movements are full. Mucous membranes of the mouth are moist. NECK: Supple. CHEST: Clear to auscultation. There is a draining tube in the left axillary area with a bandage co vering this and a serous drainage from the drainage tube. HEART: Regular. No gallop or murmur. ABDOMEN: Soft. No palpable organs or masses. EXTREMITIES: Reveal no edema, cyanosis, or clubbing. There is a jugular venous catheter on the rig ht side. INITIAL IMPRESSION: 1. Cellulitis, left breast, Staphylococcus aureus. 2. Rule out infected seroma, left mastectomy site. 3. Carcinoma of the breast with neoadjuvant chemotherapy. 4. Hypertension. RECOMMENDATIONS: Continue the present therapy with Bactrim and observe and wait for completion of t he culture before changing to any other antibiotic. Dictated By: Quentin ZHANG/NTS Conf#: [id number] DID#: [id number]
[2016-11-16] MEDS: POLYETHYLENE GLYCOL 17 GM PACKET PO SCH (08:25)
[2016-11-16] MEDS: DOCUSATE SODIUM 100 MG CAP PO SCH ×3 (08:25→20:57)
[2016-11-16] MEDS: HYDROCODONE/APAP (10/325) TAB PO PRN ×3 (08:25→20:58)
[2016-11-16] MEDS: BISACODYL (EC) 5 MG TAB PO SCH ×2 (08:25→20:58)
--- NOTE | 2016-11-16 10:59 | PN ---
Date/Time of Note Date/Time of Note DATE: 11/16/16 TIME: 10:56 Assessment/Plan VTE Prophylaxis VTE Prophylaxis Intervention: ambulation Lines/Catheters [facility] Vishnu cath Central line still needed: Yes Assessment/Plan Chief Complaint/Hosp Course 1. Left chest wall cellulitis and fluid collection, doubt abscess. 2. Left breast partial mastectomy, partial per patient. 3. Hypertension 4. hypokalemia and 5. Leukocytosis. Problems: Assessment/Plan 1. Surgery on Friday Subjective 24 Hr Interval Summary Constitutional: improved, no complaints ENT: no complaints Respiratory: no complaints Cardiovascular: no complaints Exam/Review of Systems Vital Signs Vitals Vital Signs Date Time Temp Pulse Resp B/P Pulse Ox O2 Delivery O2 Flow Rate FiO2 11/16/16 07:40 98.4 85 18 110/81 96 11/14/16 06:45 Room Air Intake and Output 11/15/16 11/15/16 11/16/16 15:00 23:00 07:00 Intake Total 615 ml 1855 ml 1565 ml Output Total 30 ml Balance 615 ml 1855 ml 1535 ml Exam Constitutional: alert, oriented Psych: no complaints Head: normocephalic Eyes: nl conjunctiva Skin: other (dressing on the left breast with nawaf) Results Result Diagram: 11/16/16 0507 11/16/16 0507 Results 24 hrs Laboratory Tests Test 11/16/16 05:07 White Blood Count 6.3 # Red Blood Count 2.44 L Hemoglobin 8.0 L Hematocrit 25.0 L Mean Corpuscular Volume 102.5 H Mean Corpuscular Hemoglobin 32.8 Mean Corpuscular Hemoglobin Concent 32.0 Red Cell Distribution Width 14.6 H Platelet Count 265 # Mean Platelet Volume 9.7 Neutrophils % 62.5 Lymphocytes % 25.2 Monocytes % 10.9 Eosinophils % 1.0 Basophils % 0.2 Nucleated Red Blood Cells % 0.0 Neutrophils # 3.9 Lymphocytes # 1.6 Monocytes # 0.7 Eosinophils # 0.1 Basophils # 0.0 Nucleated Red Blood Cells # 0.0 Prothrombin Time 13.1 Prothrombin Time Ratio 1.0 INR International Normalized Ratio 0.99 Activated Partial Thromboplast Time 33.4 Sodium Level 137 Potassium Level 3.6 Chloride Level 100 Carbon Dioxide Level 27 Anion Gap 14 Blood Urea Nitrogen 3 L Creatinine 0.81 Glucose Level 91 Calcium Level 9.2 Medications Medications Current Medications Pantoprazole (Protonix Tab) 40 mg DAILY@06 PO Last administered on 11/16/16 05 :23; Admin Dose 40 MG; Start 11/14/16 at 06:00 Acetaminophen (Tylenol Tab) 650 mg Q6H PRN PO PAIN AND OR ELEVATED TEMP; Start 11/14/16 at 05:30 Morphine Sulfate (morphine) 2 mg Q4H PRN IV PAIN Last administered on 06:05; Admin Dose 2 MG; Start 11/14/16 at 05:30 Ondansetron HCl (Zofran Inj) 4 mg Q6H PRN IV NAUSEA AND/OR VOMITING Last administered on 11/15/16 23:34; Admin Dose 4 MG; Start 11/14/16 at 05:30 Hydromorphone HCl (Dilaudid) 1 mg Q4H PRN IV PAIN Last administered on 10:32; Admin Dose 1 MG; Start 11/14/16 at 09:30 Acetaminophen/ Hydrocodone Bitart ([place] (10/325)) 1 tab Q4H PRN PO PAIN Last administered on 11/16/16 08:25; Admin Dose 1 TAB; Start 11/14/16 at 11:30 Miscellaneous Information BACTRIM IV BID PHARM... ONCE XX ; Start 11/14/16 at 14 :30 Trimethoprim/ Sulfamethoxazole 15 ml/Dextrose 515 ml @ 343.333 mls/hr Q8 IVPB Last administered on 11/16/16 06:24; Admin Dose 343.333 MLS/HR; Start 11/14/16 at 16:30 Piperacillin Sod/ Tazobactam Sod 100 ml @ 200 mls/hr Q6 IVPB Last administered on 11/16/16 05:07; Admin Dose 200 MLS/HR; Start 11/15/16 at 00:00 Vancomycin HCl/ Sodium Chloride (Vancocin/NS) 150 ml @ 75 mls/hr Q12H IVPB Last administered on 11/16/16 03:13; Admin Dose 75 MLS/HR; Start 11/16/16 at 04 :00 Polyethylene Glycol (Miralax) 17 gm DAILY PO Last administered on 11/16/16 08: 25; Admin Dose 17 GM; Start 11/15/16 at 20:00 Bisacodyl (Dulcolax) 10 mg BID PO Last administered on 11/16/16 08:25; Admin Dose 10 MG; Start 11/15/16 at 21:00 Docusate Sodium (Colace) 100 mg TID PO Last administered on 11/16/16 08:25; Admin Dose 100 MG; Start 11/15/16 at 21:00 Miscellaneous Information (*Rx Drug Level Order Reminder*) VANCO TROUGH AT 0, 300 ON... ONCE ONCE XX ; Start 11/17/16 at 03:00; Stop 11/17/16 at 03:01 ISAURA BOCANEGRA November 16, 2016 10:59
--- NOTE | 2016-11-16 12:32 | PN ---
DATE: 11/16/2016 SUBJECTIVE: Feels much better. OBJECTIVE: VITAL SIGNS: Temperature 98.4, pulse 85, respiratory rate 18, blood pressure 110/85, saturation 96% on room air. BREASTS: Continues to have some drainage from the middle of the incision line for the partial maste ctomy. LABORATORY DATA: WBC down to 6300 with 62% neutrophils. Hemoglobin 8, hematocrit 25, platelet coun t 265. The drainage from wound culture eventually is back as Staph aureus 4+, sensitivities to most of the antibiotics, especially Bactrim that she is getting now. PLAN: Continue antibiotics. Continue current care. Change dressing p.r.n. If it continues to ike in tomorrow as well, we probably are going to do incision and drainage and washing of the wound cavi ty in the operating room on Friday. Dictated By: ONEL ALDANA MD PS/NTS Conf#: [id number] DID#: [id number]
--- NOTE | 2016-11-16 17:18 | CONS ---
Date/Time of Note Date/Time of Note DATE: 11/16/16 TIME: 17:18 Assessment/Plan Assessment/Plan Chief Complaint/Hosp Course ID PROGRESS NOTE ABX DAY #BACTRIM 24H INTERVAL SUMMARY * Pleasant pillo polite female, good historian, No fever, TMax this admit 99.+ , WBC normalized * She has pain at the left breast wound site -- DSG change recently completed by RN * Wound growing KIM = heavy growth per WOUND CULTURE Final Organism 1 STAPHYLOCOCCUS AUREUS QUANTITY 4+ S AUREUS M.I.C. RX --------- --- CEFAZOLIN S CIPROFLOXACIN <=0.5 S CLINDAMYCIN <=0.25 S DOXYCYCLINE S ERYTHROMYCIN <=0.25 S LEVOFLOXACIN <=0.12 S OXACILLIN 0.5 S PENICILLIN-G >=0.5 R RIFAMPIN <=0.5 S VANCOMYCIN <=0.5 S TRIMETHOPRIM/SULFAMETHOXAZOLE <=10 S PHYSICAL EXAMINATION: GENERAL: VSS, NAD HEENT: Unremarkable NECK: Trach-> midline CHEST: Equal chest rise bilaterally, without dyspnea on observation // left breast DSG C/D/I HEART: Pulse RRR ABDOMEN: Soft EXTREMITIES: Warm, SKIN: Warm, dry ID ASSESSMENT: 46 yo F w/ admitted with: 1. Cellulitis, left breast, Staphylococcus aureus. 2. Rule out infected seroma, left mastectomy site. 3. Carcinoma of the breast with neoadjuvant chemotherapy. 4. Hypertension. ABX ALLERGIES: NKDA CURRENT ABX: # BACTRIM ID RECOMMENDATIONS: 1. Continue Bactrim -> Per notes surgery plans I&D Friday11/18/16 2. ID team will follow . . Problems: Consultation Date/Type/Reason Admit Date/Time November 14, 2016 at 02:57 Initial Consult Date Exam/Review of Systems Vital Signs Vitals Vital Signs Date Time Temp Pulse Resp B/P Pulse Ox O2 Delivery O2 Flow Rate FiO2 11/16/16 07:40 98.4 85 18 110/81 96 11/14/16 06:45 Room Air Intake and Output 11/15/16 11/15/1617 15:00 23:00 07:00 Intake Total 615 ml 1855 ml 1565 ml Output Total 30 ml Balance 615 ml 1855 ml 1535 ml Results Result Diagram: 11/16/16 0507 11/16/16 0507 Results 24 hrs Laboratory Tests Test 11/16/16 05:07 White Blood Count 6.3 # Red Blood Count 2.44 L Hemoglobin 8.0 L Hematocrit 25.0 L Mean Corpuscular Volume 102.5 H Mean Corpuscular Hemoglobin 32.8 Mean Corpuscular Hemoglobin Concent 32.0 Red Cell Distribution Width 14.6 H Platelet Count 265 # Mean Platelet Volume 9.7 Neutrophils % 62.5 Lymphocytes % 25.2 Monocytes % 10.9 Eosinophils % 1.0 Basophils % 0.2 Nucleated Red Blood Cells % 0.0 Neutrophils # 3.9 Lymphocytes # 1.6 Monocytes # 0.7 Eosinophils # 0.1 Basophils # 0.0 Nucleated Red Blood Cells # 0.0 Prothrombin Time 13.1 Prothrombin Time Ratio 1.0 INR International Normalized Ratio 0.99 Activated Partial Thromboplast Time 33.4 Sodium Level 137 Potassium Level 3.6 Chloride Level 100 Carbon Dioxide Level 27 Anion Gap 14 Blood Urea Nitrogen 3 L Creatinine 0.81 Glucose Level 91 Calcium Level 9.2 Medications Medications Current Medications Pantoprazole (Protonix Tab) 40 mg DAILY@06 PO Last administered on 11/16/16 05 :23; Admin Dose 40 MG; Start 11/14/16 at 06:00 Acetaminophen (Tylenol Tab) 650 mg Q6H PRN PO PAIN AND OR ELEVATED TEMP; Start 11/14/16 at 05:30 Morphine Sulfate (morphine) 2 mg Q4H PRN IV PAIN Last administered on 06:05; Admin Dose 2 MG; Start 11/14/16 at 05:30 Ondansetron HCl (Zofran Inj) 4 mg Q6H PRN IV NAUSEA AND/OR VOMITING Last administered on 11/15/16 23:34; Admin Dose 4 MG; Start 11/14/16 at 05:30 Hydromorphone HCl (Dilaudid) 1 mg Q4H PRN IV PAIN Last administered on 14:37; Admin Dose 1 MG; Start 11/14/16 at 09:30 Acetaminophen/ Hydrocodone Bitart ([place] (10/325)) 1 tab Q4H PRN PO PAIN Last administered on 11/16/16 12:42; Admin Dose 1 TAB; Start 11/14/16 at 11:30 Miscellaneous Information BACTRIM IV BID PHARM... ONCE XX ; Start 11/14/16 at 14 :30 Trimethoprim/ Sulfamethoxazole 15 ml/Dextrose 515 ml @ 343.333 mls/hr Q8 IVPB Last administered on 11/16/16 14:07; Admin Dose 343.333 MLS/HR; Start 11/14/16 at 16:30 Piperacillin Sod/ Tazobactam Sod 100 ml @ 200 mls/hr Q6 IVPB Last administered on 11/16/16 11:45; Admin Dose 200 MLS/HR; Start 11/15/16 at 00:00 Vancomycin HCl/ Sodium Chloride (Vancocin/NS) 150 ml @ 75 mls/hr Q12H IVPB Last administered on 11/16/16 16:32; Admin Dose 75 MLS/HR; Start 11/16/16 at 04 :00 Polyethylene Glycol (Miralax) 17 gm DAILY PO Last administered on 11/16/16 08: 25; Admin Dose 17 GM; Start 11/15/16 at 20:00 Bisacodyl (Dulcolax) 10 mg BID PO Last administered on 11/16/16 08:25; Admin Dose 10 MG; Start 11/15/16 at 21:00 Docusate Sodium (Colace) 100 mg TID PO Last administered on 11/16/16 12:42; Admin Dose 100 MG; Start 11/15/16 at 21:00 Miscellaneous Information (*Rx Drug Level Order Reminder*) VANCO TROUGH AT 0, 300 ON... ONCE ONCE XX ; Start 11/17/16 at 03:00; Stop 11/17/16 at 03:01 DEB MICHEL NP November 16, 2016 17:18
[2016-11-16 20:44] VITALS: BP 109/56; RESP 20
[2016-11-16] MEDS: MULTIVITAMINS THERAPEUTIC TAB PO SCH (20:58)
[2016-11-17] MEDS: PIPER-TAZO 3.375 GM IV (PMX) 100 ML IVPB SCH ×5 (00:31→23:42)
[2016-11-17] MEDS: HYDROCODONE/APAP (10/325) TAB PO PRN ×6 (01:12→23:42)
[2016-11-17] MEDS: HYDROmorphONE 1 MG/ML SYG IV PRN ×5 (03:58→21:46)
[2016-11-17 04:31] LABS: ADD SCAN DIFF NO
[2016-11-17 04:34] LABS: BASOPHILS % 0.4 % (0.0-2.0); EOSINOPHILS # 0.1 10^3/ul (0.0-0.5); EOSINOPHILS % 1.8 % (0.0-7.0); HEMATOCRIT 26.8 % (37.0-47.0); HEMOGLOBIN 8.9 g/dl (12.0-16.0); LYMPHOCYTES # 1.6 10^3/ul (0.8-2.9); LYMPHOCYTES % 32.2 % (15.0-51.0); MEAN CORPUSCULAR HEMOGLOBIN 34.2 pg (29.0-33.0); MEAN CORPUSCULAR HGB CONC 33.2 g/dl (32.0-37.0); MEAN CORPUSCULAR VOLUME 103.1 fl (82.0-101.0); MEAN PLATELET VOLUME 9.4 fl (7.4-10.4); MONOCYTE # 0.6 10^3/ul (0.3-0.9); MONOCYTES % 12.8 % (0.0-11.0); NEUTROPHIL # 2.6 10^3/ul (1.6-7.5); NEUTROPHILS % 52.4 % (39.0-77.0); PLATELET COUNT 301 10^3/UL (140-415); RED CELL DISTRIBUTION WIDTH 14.6 % (11.5-14.5)
[2016-11-17 04:51] LABS: CALCIUM 9.7 mg/dl (8.4-10.2); CREATININE 0.78 mg/dl (0.44-1.00); POTASSIUM 3.6 mmol/L (3.5-5.1)
[2016-11-17] MEDS: PANTOPRAZOLE (EC) 40 MG TAB PO SCH (05:05)
[2016-11-17] MEDS: TRIMETHOPRIM/SULFAMETHOXAZOLE 15 ML in DEXTROSE 5% 500 ML IVPB SCH ×3 (06:26→21:46)
[2016-11-17] MEDS ORDERED: VANCOMYCIN 750 MG in SOD CHLORIDE 0.9% 150 ML IVPB SCH (06:30)
[2016-11-17] MEDS ORDERED: VANCOMYCIN 1.25 GM in SOD CHLORIDE 0.9% 250 ML IVPB SCH ×2 (07:30→22:00)
[2016-11-17] MEDS: MULTIVITAMINS THERAPEUTIC TAB PO SCH (08:16)
[2016-11-17] MEDS: DOCUSATE SODIUM 100 MG CAP PO SCH ×3 (08:25→20:07)
[2016-11-17] MEDS: POLYETHYLENE GLYCOL 17 GM PACKET PO SCH (08:25)
[2016-11-17] MEDS: BISACODYL (EC) 5 MG TAB PO SCH ×2 (08:25→20:07)
[2016-11-17 08:33] VITALS: BP 113/80; RESP 17
--- NOTE | 2016-11-17 11:23 | CONS ---
Date/Time of Note Date/Time of Note DATE: 11/17/16 TIME: 11:20 Assessment/Plan Assessment/Plan Chief Complaint/Hosp Course ID PROGRESS NOTE ABX DAY #BACTRIM #4 -> Change to Vanco IV #1 24H INTERVAL SUMMARY * Doing well, pain ongoing relieved w/meds, Plan is to OR Friday for I&D * Pleasant Female, good historian she is a twin * WBC normalized * Wound growing KIM = heavy growth per WOUND CULTURE Final Organism 1 STAPHYLOCOCCUS AUREUS QUANTITY 4+ S AUREUS M.I.C. RX --------- --- CEFAZOLIN S CIPROFLOXACIN <=0.5 S CLINDAMYCIN <=0.25 S DOXYCYCLINE S ERYTHROMYCIN <=0.25 S LEVOFLOXACIN <=0.12 S OXACILLIN 0.5 S PENICILLIN-G >=0.5 R RIFAMPIN <=0.5 S VANCOMYCIN <=0.5 S TRIMETHOPRIM/SULFAMETHOXAZOLE <=10 S PHYSICAL EXAMINATION: GENERAL: VSS, NAD HEENT: Unremarkable NECK: Trach-> midline CHEST: Equal chest rise bilaterally, without dyspnea on observation // left breast DSG C/D/I HEART: Pulse RRR ABDOMEN: Soft EXTREMITIES: Warm, SKIN: Warm, dry ID ASSESSMENT: 46 yo F w/ admitted with: 1. Cellulitis, left breast, Staphylococcus aureus. 2. Rule out infected seroma, left mastectomy site. 3. Carcinoma of the breast with neoadjuvant chemotherapy. 4. Hypertension. ABX ALLERGIES: NKDA CURRENT ABX: => BACTRIM #4 -> Change to Vanco IV #1 ID RECOMMENDATIONS: 1. Continue ABX -> Per notes surgery plans I&D Friday11/18/16 2. ID team will follow . . Problems: Consultation Date/Type/Reason Admit Date/Time November 14, 2016 at 02:57 Exam/Review of Systems Vital Signs Vitals Vital Signs Date Time Temp Pulse Resp B/P Pulse Ox O2 Delivery O2 Flow Rate FiO2 11/17/16 08:33 97.7 83 17 113/80 99 11/14/16 06:45 Room Air Intake and Output 11/16/16 11/16/16 11/17/16 15:00 23:00 07:00 Intake Total 615 ml 1725 ml 1555 ml Output Total 5 ml Balance 615 ml 1725 ml 1550 ml Results Result Diagram: 11/17/16 0349 11/17/16 0349 Results 24 hrs Laboratory Tests Test 11/17/16 03:49 White Blood Count 5.0 # Red Blood Count 2.60 L Hemoglobin 8.9 L Hematocrit 26.8 L Mean Corpuscular Volume 103.1 H Mean Corpuscular Hemoglobin 34.2 H Mean Corpuscular Hemoglobin Concent 33.2 Red Cell Distribution Width 14.6 H Platelet Count 301 Mean Platelet Volume 9.4 Neutrophils % 52.4 Lymphocytes % 32.2 Monocytes % 12.8 H Eosinophils % 1.8 Basophils % 0.4 Nucleated Red Blood Cells % 0.0 Neutrophils # 2.6 Lymphocytes # 1.6 Monocytes # 0.6 Eosinophils # 0.1 Basophils # 0.0 Nucleated Red Blood Cells # 0.0 Sodium Level 138 Potassium Level 3.6 Chloride Level 103 Carbon Dioxide Level 27 Anion Gap 12 Blood Urea Nitrogen 3 L Creatinine 0.78 Glucose Level 85 Calcium Level 9.7 Vancomycin Level Trough 7.7 L Medications Medications Current Medications Pantoprazole (Protonix Tab) 40 mg DAILY@06 PO Last administered on 11/17/16 05 :05; Admin Dose 40 MG; Start 11/14/16 at 06:00 Acetaminophen (Tylenol Tab) 650 mg Q6H PRN PO PAIN AND OR ELEVATED TEMP; Start 11/14/16 at 05:30 Morphine Sulfate (morphine) 2 mg Q4H PRN IV PAIN Last administered on 06:05; Admin Dose 2 MG; Start 11/14/16 at 05:30 Ondansetron HCl (Zofran Inj) 4 mg Q6H PRN IV NAUSEA AND/OR VOMITING Last administered on 11/15/16 23:34; Admin Dose 4 MG; Start 11/14/16 at 05:30 Hydromorphone HCl (Dilaudid) 1 mg Q4H PRN IV PAIN Last administered on 08:18; Admin Dose 1 MG; Start 11/14/16 at 09:30 Acetaminophen/ Hydrocodone Bitart ([place] (10/325)) 1 tab Q4H PRN PO PAIN Last administered on 11/17/16 10:06; Admin Dose 1 TAB; Start 11/14/16 at 11:30 Miscellaneous Information BACTRIM IV BID PHARM... ONCE XX ; Start 11/14/16 at 14 :30 Trimethoprim/ Sulfamethoxazole 15 ml/Dextrose 515 ml @ 343.333 mls/hr Q8 IVPB Last administered on 11/17/16 06:26; Admin Dose 343.333 MLS/HR; Start 11/14/16 at 16:30 Piperacillin Sod/ Tazobactam Sod (Zosyn 3.375gm/ 100 ml (Pmx)) 100 ml @ 200 mls /hr Q6 IVPB Last administered on 11/17/16 05:05; Admin Dose 200 MLS/HR; Start 11/15/16 at 00:00 Polyethylene Glycol (Miralax) 17 gm DAILY PO Last administered on 11/17/16 08: 25; Admin Dose 17 GM; Start 11/15/16 at 20:00 Bisacodyl (Dulcolax) 10 mg BID PO Last administered on 11/17/16 08:25; Admin Dose 10 MG; Start 11/15/16 at 21:00 Docusate Sodium (Colace) 100 mg TID PO Last administered on 11/17/16 08:25; Admin Dose 100 MG; Start 11/15/16 at 21:00 Multivitamins Therapeutic 1 tab 1 tab DAILY PO Last administered on 11/17/16 08:16; Admin Dose 1 TAB; Start 11/16/16 at 20:00 Vancomycin HCl/ Sodium Chloride (Vancocin/NS) 250 ml @ 83.333 mls/ hr Q12H IVPB ; Start 11/17/16 at 22:00 DEB MICHEL NP November 17, 2016 11:23
--- NOTE | 2016-11-17 16:37 | PN ---
DATE: 11/17/2016 SUBJECTIVE: Feels okay. No new complaint except continues to have leakage from the left breast wou nd. OBJECTIVE GENERAL: Awake, alert, oriented x3. VITAL SIGNS: Temperature 97.7, heart rate 83, respirations 17, blood pressure 13/80, saturation 99% room air. LABORATORY DATA: Chemistry within normal limits. WBC 5000 with 52% neutrophils, hemoglobin 8.9, he matocrit 26.8. On the left, a Landry-Uribe drain which is located in the left axillary area has be en draining. On the day before surgery, serous fluid past 24-hour they have been recorded only 5 m L appears that is not accurate completely. Right now there is about 10 mL of serous fluid. Clear i n the back and this is from last night at 7:00 p.m. Today 12 noon. The other dressing has been araceli nged by nurse, which was soaked a little bit with purulent material. PLAN: The patient is going to go to the OR tomorrow, Friday, for incision and drainage of the left partial mastectomy site abscess. Dictated By: ONEL CALLAHAN/DENNIS Conf#: [id number] DID#: [id number]
--- NOTE | 2016-11-17 17:18 | PN ---
Date/Time of Note Date/Time of Note DATE: 11/17/16 TIME: 17:17 Assessment/Plan VTE Prophylaxis VTE Prophylaxis Intervention: other Lines/Catheters IV [facility] VILMA CATH Assessment/Plan Chief Complaint/Hosp Course 1. Left chest wall possible cellulitis and fluid collection, doubt abscess. 2. Left breast mastectomy, partial per patient. Other diagnoses include hypertension history, hyponatremia, hypokalemia and leukocytosis. The patient' s other diagnoses include patient has a left breast cancer status post neoadjuvant chemotherapy and left partial mastectomy and axillary dissection. The patient's other diagnoses include history of hypertension. PLAN ANTIBIOTIC Problems: Subjective 24 Hr Interval Summary Cardiovascular: no complaints Gastrointestinal: no complaints Exam/Review of Systems Vital Signs Vitals Vital Signs Date Time Temp Pulse Resp B/P Pulse Ox O2 Delivery O2 Flow Rate FiO2 11/17/16 08:33 97.7 83 17 113/80 99 11/14/16 06:45 Room Air Intake and Output 11/16/16 11/16/16 11/17/16 15:00 23:00 07:00 Intake Total 615 ml 1725 ml 1555 ml Output Total 5 ml Balance 615 ml 1725 ml 1550 ml Exam Respiratory: clear to auscultation Cardiovascular: regular rate and rhythm Gastrointestinal: soft Extremities: normal pulses Results Result Diagram: 11/17/16 0349 11/17/16 0349 Results 24 hrs Laboratory Tests Test 11/17/16 03:49 White Blood Count 5.0 # Red Blood Count 2.60 L Hemoglobin 8.9 L Hematocrit 26.8 L Mean Corpuscular Volume 103.1 H Mean Corpuscular Hemoglobin 34.2 H Mean Corpuscular Hemoglobin Concent 33.2 Red Cell Distribution Width 14.6 H Platelet Count 301 Mean Platelet Volume 9.4 Neutrophils % 52.4 Lymphocytes % 32.2 Monocytes % 12.8 H Eosinophils % 1.8 Basophils % 0.4 Nucleated Red Blood Cells % 0.0 Neutrophils # 2.6 Lymphocytes # 1.6 Monocytes # 0.6 Eosinophils # 0.1 Basophils # 0.0 Nucleated Red Blood Cells # 0.0 Sodium Level 138 Potassium Level 3.6 Chloride Level 103 Carbon Dioxide Level 27 Anion Gap 12 Blood Urea Nitrogen 3 L Creatinine 0.78 Glucose Level 85 Calcium Level 9.7 Vancomycin Level Trough 7.7 L Medications Medications Current Medications Pantoprazole (Protonix Tab) 40 mg DAILY@06 PO Last administered on 11/17/16 05 :05; Admin Dose 40 MG; Start 11/14/16 at 06:00 Acetaminophen (Tylenol Tab) 650 mg Q6H PRN PO PAIN AND OR ELEVATED TEMP; Start 11/14/16 at 05:30 Morphine Sulfate (morphine) 2 mg Q4H PRN IV PAIN Last administered on 06:05; Admin Dose 2 MG; Start 11/14/16 at 05:30 Ondansetron HCl (Zofran Inj) 4 mg Q6H PRN IV NAUSEA AND/OR VOMITING Last administered on 11/15/16 23:34; Admin Dose 4 MG; Start 11/14/16 at 05:30 Hydromorphone HCl (Dilaudid) 1 mg Q4H PRN IV PAIN Last administered on 12:56; Admin Dose 1 MG; Start 11/14/16 at 09:30 Acetaminophen/ Hydrocodone Bitart ([place] (10/325)) 1 tab Q4H PRN PO PAIN Last administered on 11/17/16 13:55; Admin Dose 1 TAB; Start 11/14/16 at 11:30 Miscellaneous Information BACTRIM IV BID PHARM... ONCE XX ; Start 11/14/16 at 14 :30 Trimethoprim/ Sulfamethoxazole 15 ml/Dextrose 515 ml @ 343.333 mls/hr Q8 IVPB Last administered on 11/17/16 15:08; Admin Dose 343.333 MLS/HR; Start 11/14/16 at 16:30 Piperacillin Sod/ Tazobactam Sod (Zosyn 3.375gm/ 100 ml (Pmx)) 100 ml @ 200 mls /hr Q6 IVPB Last administered on 11/17/16 13:55; Admin Dose 200 MLS/HR; Start 11/15/16 at 00:00 Polyethylene Glycol (Miralax) 17 gm DAILY PO Last administered on 11/17/16 08: 25; Admin Dose 17 GM; Start 11/15/16 at 20:00 Bisacodyl (Dulcolax) 10 mg BID PO Last administered on 11/17/16 08:25; Admin Dose 10 MG; Start 11/15/16 at 21:00 Docusate Sodium (Colace) 100 mg TID PO Last administered on 11/17/16 13:54; Admin Dose 100 MG; Start 11/15/16 at 21:00 Multivitamins Therapeutic 1 tab 1 tab DAILY PO Last administered on 11/17/16 08:16; Admin Dose 1 TAB; Start 11/16/16 at 20:00 Vancomycin HCl/ Sodium Chloride (Vancocin/NS) 250 ml @ 83.333 mls/ hr Q12H IVPB ; Start 11/17/16 at 22:00 AURELIA ALLISON MD November 17, 2016 17:18
[2016-11-17 20:06] VITALS: BP 107/58; RESP 18
[2016-11-18] VITALS (17 sets, daily range): BP systolic 95–140; BP diastolic 52–77; PULSE 84–124; RESP 14–25
[2016-11-18] MEDS: HYDROmorphONE 1 MG/ML SYG IV PRN ×4 (01:45→21:28)
[2016-11-18] MEDS: PANTOPRAZOLE (EC) 40 MG TAB PO SCH (04:24)
[2016-11-18] MEDS: PIPER-TAZO 3.375 GM IV (PMX) 100 ML IVPB SCH (04:44)
[2016-11-18] MEDS: TRIMETHOPRIM/SULFAMETHOXAZOLE 15 ML in DEXTROSE 5% 500 ML IVPB SCH ×3 (05:46→22:41)
[2016-11-18 06:15] LABS: ADD SCAN DIFF NO
[2016-11-18 06:21] LABS: BASOPHILS % 0.2 % (0.0-2.0); EOSINOPHILS # 0.1 10^3/ul (0.0-0.5); EOSINOPHILS % 1.9 % (0.0-7.0); HEMATOCRIT 25.5 % (37.0-47.0); HEMOGLOBIN 8.5 g/dl (12.0-16.0); LYMPHOCYTES # 1.7 10^3/ul (0.8-2.9); LYMPHOCYTES % 37.2 % (15.0-51.0); MEAN CORPUSCULAR HEMOGLOBIN 33.9 pg (29.0-33.0); MEAN CORPUSCULAR HGB CONC 33.3 g/dl (32.0-37.0); MEAN CORPUSCULAR VOLUME 101.6 fl (82.0-101.0); MEAN PLATELET VOLUME 9.6 fl (7.4-10.4); MONOCYTE # 0.6 10^3/ul (0.3-0.9); NEUTROPHIL # 2.2 10^3/ul (1.6-7.5); NEUTROPHILS % 47.3 % (39.0-77.0); PLATELET COUNT 329 10^3/UL (140-415); RED BLOOD COUNT 2.51 10^6/ul (4.20-5.40); RED CELL DISTRIBUTION WIDTH 14.5 % (11.5-14.5); WHITE BLOOD COUNT 4.7 10^3/ul (4.8-10.8)
[2016-11-18] MEDS: DOCUSATE SODIUM 100 MG CAP PO SCH ×3 (08:21→20:11)
[2016-11-18] MEDS: BISACODYL (EC) 5 MG TAB PO SCH ×2 (08:21→20:12)
[2016-11-18] MEDS: POLYETHYLENE GLYCOL 17 GM PACKET PO SCH (08:22)
[2016-11-18] MEDS: MULTIVITAMINS THERAPEUTIC TAB PO SCH (08:22)
[2016-11-18] MEDS ORDERED: MIDAZOLAM 1 MG/ML 2 ML INJ ONE (10:40)
[2016-11-18] MEDS ORDERED: FENTAnyl 50 MCG/ML VIAL ONE (10:40)
[2016-11-18] MEDS ORDERED: LIDOCAINE 1% (MDV) 20 ML INJ ONE (10:40)
[2016-11-18] MEDS ORDERED: PROPOFOL 20 ML ONE (10:40)
[2016-11-18] MEDS ORDERED: PHENYLephrine (100 MCG/ML) 5ML SYG ONE ×2 (11:06→11:23)
[2016-11-18] MEDS ORDERED: ONDANSETRON 4 MG INJ ONE (11:10)
[2016-11-18] MEDS ORDERED: DEXAMETHASONE 4 MG/ML 1 ML INJ ONE (11:10)
[2016-11-18] MEDS ORDERED: FAMOTIDINE 20 MG INJ ONE (11:10)
[2016-11-18] MEDS ORDERED: PIPER-TAZO 3.375 GM IV (PMX) 100 ML ONE (11:15)
[2016-11-18] MEDS ORDERED: VANCOMYCIN 1 GM (PMX) 250 ML ONE (11:15)
[2016-11-18] MEDS ORDERED: MEPERIDINE 25 MG INJ IV PRN (11:30)
[2016-11-18] MEDS ORDERED: HYDROmorphONE (0.2 MG/ML) 10ML SYG IV PRN ×2 (11:30)
[2016-11-18] MEDS ORDERED: PROCHLORPERAZINE 10 MG INJ IV PRN (11:30)
[2016-11-18] MEDS ORDERED: DIPHENHYDRAMINE 50 MG INJ IV PRN (11:30)
--- NOTE | 2016-11-18 12:53 | OPR ---
DATE OF OPERATION: 11/18/2016 SURGEON: Markell Aldana MD BLUEPRINTER: Marcus Gustafson MD ANESTHESIA: General. ANESTHESIOLOGIST: Dr. Harvey PREOPERATIVE DIAGNOSIS: Left breast abscess -- infected seroma at the site of previous partial mast ectomy. POSTOPERATIVE DIAGNOSES: Left breast abscess -- infected seroma at the site of previous partial mas tectomy. OPERATION PERFORMED: 1. Incision and drainage of abscess. 2. Thorough irrigation with hydrogen peroxide and normal saline solution. 3. Placement of the [place] drain, half an inch in the cavity, and closure of the wound with interr upted vertical mattress 3-0 nylon sutures. INDICATION: The patient is a 46-year-old female who was admitted on 11/14/2016 because of the leaka ge from the site of previous operation and generalized pain and aching, especially in the left breas t and swelling of the breast and was found to have leukocytosis diagnosed with cellulitis post opera tion. Actually, the patient had partial mastectomy with axillary dissection, sentinel lymph node te chnique, 2 weeks before the admission because of the cancer of the left breast, and apparently she g ot cellulitis after 2 weeks, so was admitted, antibiotics started. The patient's leukocytosis resol diana to normal within 24 hours, but continued to have swelling and pain in the left breast area. The re was some drainage from the left breast incision site which was noted to be completely purulent on the weekend, Friday, yesterday. Therefore, decision was made to proceed with drainage of the cavit y. Discussed with the patient and agreed. So the patient was booked for operation today. DESCRIPTION OF PROCEDURE: The patient was brought to the operating room, placed on the operating ta ble in supine position. Anesthesia was induced by the anesthesiologist, 3.375 g of Zosyn and 1 g of vancomycin was given IV to the patient, then prep and drape was done in standard usual fashion. Th e partial mastectomy cavity incision was opened, and the culture was taken from the contents. The c ontents which were purulent were sucked out. Then, thorough irrigation with hydrogen peroxide was p erformed, and then washed out with 1 L of normal saline solution. Hemostasis was achieved. A Penro se drain was placed into the cavity and was brought out from the inferior corner of the wound and wa s anchored to the skin with 3-0 nylon. The rest of the incision was closed with 3-0 nylon interrupt ed vertical mattress fashion. The patient tolerated procedure well. Sponge and instrument count re ported to be correct x2. Dry bulky dressing was applied. SPECIMEN: Cultures from the cavity abscess were sent for culture and sensitivity. The patient was awakened and extubated, transferred to recovery room in stable condition. ESTIMATED BLOOD LOSS: 20 mL. DRAINS: One [place]. Dictated By: MARKELL ALDANA MD PS/DENNIS Conf#: [id number] DID#: [id number]
--- NOTE | 2016-11-18 16:42 | PN ---
DATE: 11/18/2016 SUBJECTIVE: This is an infectious disease progress note. No acute changes. No fevers. The patien t is lying comfortably in bed. LABORATORY DATA: WBC 4.7, no shift, no bands. BUN 3, creatinine 0.78. MICROBIOLOGY: Left breast culture growing Staphylococcus aureus. Blood cultures negative. ANTIMICROBIALS: 1. IV Bactrim, status post Zosyn, vancomycin discontinued. PHYSICAL EXAMINATION: GENERAL: Well-developed, middle-aged woman who is awake, in no distress. HEENT: Head atraumatic, normocephalic. Sclerae anicteric. Buccal mucosa dry. NECK: Supple. CHEST: Rise symmetrical. Breath sounds clear. HEART: S1, S2. ABDOMEN: Soft, bowel tones present. EXTREMITIES: No cyanosis. ASSESSMENT: 1. Left breast cellulitis with cultures growing Staphylococcus aureus. 2. History of breast carcinoma status post chemotherapy. 3. Systemic inflammatory response syndrome secondary to above. 4. Anemia 5. Right IJ triple-lumen catheter. PLAN: The patient remains stable. Surgery on case. Continue present care, antibiotics and follow s urgical recommendations. Pending incision and drainage. Dictated By: ADRIANA TIERNEY FROZEN MEAT CUTTER for [employer] TARIQ/DENNIS Conf#: [id number] DID#: [id number]
--- NOTE | 2016-11-18 17:06 | PN ---
Date/Time of Note Date/Time of Note DATE: 11/18/16 TIME: 17:05 Assessment/Plan VTE Prophylaxis VTE Prophylaxis Intervention: other Lines/Catheters IV [facility]from [facility] port-a-cath Assessment/Plan Chief Complaint/Hosp Course 1. Left chest wall possible cellulitis and fluid collection, doubt abscess. 2. Left breast mastectomy, partial per patient. Other diagnoses include hypertension history, hyponatremia, hypokalemia and leukocytosis. The patient' s other diagnoses include patient has a left breast cancer status post neoadjuvant chemotherapy and left partial mastectomy and axillary dissection. The patient's other diagnoses include history of hypertension. PLAN ANTIBIOTIC per surgery Problems: Subjective 24 Hr Interval Summary Subjective hx not possible: other (s/p i and d) Exam/Review of Systems Vital Signs Vitals Vital Signs Date Time Temp Pulse Resp B/P Pulse Ox O2 Delivery O2 Flow Rate FiO2 11/18/16 13:10 98.3 87 18 102/65 98 Nasal Cannula 2.0 Intake and Output 11/17/16 11/17/16 11/18/16 15:00 23:00 07:00 Intake Total 350 ml 2575 ml 1365 ml Output Total 10 ml 10 ml Balance 350 ml 2565 ml 1355 ml Exam Neck: supple Respiratory: clear to auscultation Cardiovascular: regular rate and rhythm Gastrointestinal: soft Results Result Diagram: 11/18/16 0455 11/17/16 0349 Results 24 hrs Laboratory Tests Test 11/18/16 04:55 White Blood Count 4.7 L Red Blood Count 2.51 L Hemoglobin 8.5 L Hematocrit 25.5 L Mean Corpuscular Volume 101.6 H Mean Corpuscular Hemoglobin 33.9 H Mean Corpuscular Hemoglobin Concent 33.3 Red Cell Distribution Width 14.5 Platelet Count 329 Mean Platelet Volume 9.6 Neutrophils % 47.3 Lymphocytes % 37.2 Monocytes % 13.0 H Eosinophils % 1.9 Basophils % 0.2 Nucleated Red Blood Cells % 0.0 Neutrophils # 2.2 Lymphocytes # 1.7 Monocytes # 0.6 Eosinophils # 0.1 Basophils # 0.0 Nucleated Red Blood Cells # 0.0 Serum HCG, Qualitative NEGATIVE Medications Medications Current Medications Pantoprazole (Protonix Tab) 40 mg DAILY@06 PO Last administered on 11/17/16t 05 :05; Admin Dose 40 MG; Start 11/14/16 at 06:00 Acetaminophen (Tylenol Tab) 650 mg Q6H PRN PO PAIN AND OR ELEVATED TEMP; Start 11/14/16 at 05:30 Morphine Sulfate (morphine) 2 mg Q4H PRN IV PAIN Last administered on 06:05; Admin Dose 2 MG; Start 11/14/16 at 05:30 Ondansetron HCl (Zofran Inj) 4 mg Q6H PRN IV NAUSEA AND/OR VOMITING Last administered on 11/15/16 23:34; Admin Dose 4 MG; Start 11/14/16 at 05:30 Hydromorphone HCl (Dilaudid) 1 mg Q4H PRN IV PAIN Last administered on 10:01; Admin Dose 1 MG; Start 11/14/16 at 09:30 Acetaminophen/ Hydrocodone Bitart ([place] (10/325)) 1 tab Q4H PRN PO PAIN Last administered on 11/17/16 23:42; Admin Dose 1 TAB; Start 11/14/16 at 11:30 Miscellaneous Information BACTRIM IV BID PHARM... ONCE XX ; Start 11/14/16 at 14 :30 Trimethoprim/ Sulfamethoxazole/ Dextrose (Bactrim/D5W) 515 ml @ 343.333 mls/hr Q8 IVPB Last administered on 11/18/16 14:58; Admin Dose 343.333 MLS/HR; Start 11/14/16 at 16:30 Polyethylene Glycol (Miralax) 17 gm DAILY PO Last administered on 11/17/16 08: 25; Admin Dose 17 GM; Start 11/15/16 at 20:00 Bisacodyl (Dulcolax) 10 mg BID PO Last administered on 11/17/16 08:25; Admin Dose 10 MG; Start 11/15/16 at 21:00 Docusate Sodium (Colace) 100 mg TID PO Last administered on 11/17/16 13:54; Admin Dose 100 MG; Start 11/15/16 at 21:00 Multivitamins Therapeutic (Theragran) 1 tab DAILY PO Last administered on 08:16; Admin Dose 1 TAB; Start 11/16/16 at 20:00 AURELIA ALLISON MD November 18, 2016 17:06
[2016-11-18] MEDS: HYDROCODONE/APAP (10/325) TAB PO PRN (20:11)
[2016-11-19] MEDS: HYDROCODONE/APAP (10/325) TAB PO PRN ×5 (00:28→22:42)
[2016-11-19] MEDS: HYDROmorphONE 1 MG/ML SYG IV PRN ×5 (01:51→20:09)
[2016-11-19] MEDS: PANTOPRAZOLE (EC) 40 MG TAB PO SCH (04:04)
[2016-11-19 05:49] LABS: ADD SCAN DIFF NO
[2016-11-19 05:52] LABS: EOSINOPHILS % 0.8 % (0.0-7.0); HEMATOCRIT 24.3 % (37.0-47.0); LYMPHOCYTES # 1.7 10^3/ul (0.8-2.9); LYMPHOCYTES % 33.7 % (15.0-51.0); MEAN CORPUSCULAR HEMOGLOBIN 33.2 pg (29.0-33.0); MEAN CORPUSCULAR HGB CONC 32.9 g/dl (32.0-37.0); MEAN CORPUSCULAR VOLUME 100.8 fl (82.0-101.0); MEAN PLATELET VOLUME 9.4 fl (7.4-10.4); MONOCYTE # 0.7 10^3/ul (0.3-0.9); MONOCYTES % 13.9 % (0.0-11.0); NEUTROPHIL # 2.6 10^3/ul (1.6-7.5); NEUTROPHILS % 51.2 % (39.0-77.0); PLATELET COUNT 384 10^3/UL (140-415); RED BLOOD COUNT 2.41 10^6/ul (4.20-5.40); RED CELL DISTRIBUTION WIDTH 14.7 % (11.5-14.5)
[2016-11-19] MEDS: TRIMETHOPRIM/SULFAMETHOXAZOLE 15 ML in DEXTROSE 5% 500 ML IVPB SCH ×3 (06:07→21:35)
[2016-11-19 08:36] VITALS: BP 103/57; RESP 19
[2016-11-19] MEDS: MULTIVITAMINS THERAPEUTIC TAB PO SCH (09:20)
[2016-11-19] MEDS: DOCUSATE SODIUM 100 MG CAP PO SCH ×3 (09:20→20:08)
[2016-11-19] MEDS: BISACODYL (EC) 5 MG TAB PO SCH ×2 (09:21→20:08)
[2016-11-19] MEDS: POLYETHYLENE GLYCOL 17 GM PACKET PO SCH (09:21)
--- NOTE | 2016-11-19 15:03 | CONS ---
Date/Time of Note Date/Time of Note DATE: 11/19/16 TIME: 15:01 Assessment/Plan Assessment/Plan Chief Complaint/Hosp Course SUBJECTIVE: No acute changes. No fevers. Alert, c/o L axillary pain, no fevers, nad MICROBIOLOGY: Left breast culture growing Staphylococcus aureus. Blood cultures negative. ANTIMICROBIALS: 1. IV Bactrim PHYSICAL EXAMINATION: GENERAL: Well-developed, middle-aged woman who is awake, in no distress. HEENT: Head atraumatic, normocephalic. Sclerae anicteric. Buccal mucosa dry. NECK: Supple. CHEST: Rise symmetrical. Breath sounds clear. HEART: S1, S2. ABDOMEN: Soft, bowel tones present. EXTREMITIES: No cyanosis. ASSESSMENT: 1. Left breast cellulitis/infected seroma, s/p i&d===> cultures growing MSSA 2. History of breast carcinoma status post chemotherapy. 3. Systemic inflammatory response syndrome secondary to above. 4. Anemia 5. Right chest portacath. PLAN: The patient remains stable. Surgery on case. Continue present care, antibiotics and follow surgical recommendations. DW staff Problems: Consultation Date/Type/Reason Admit Date/Time November 14, 2016 at 02:57 Initial Consult Date Type of Consultation: ID Exam/Review of Systems Vital Signs Vitals Vital Signs Date Time Temp Pulse Resp B/P Pulse Ox O2 Delivery O2 Flow Rate FiO2 11/19/16 08:36 97.7 100 19 103/57 100 11/18/16 13:10 Nasal Cannula 2.0 Intake and Output 11/18/16 11/18/16 11/19/16 15:00 23:00 07:00 Intake Total 815 ml 515 ml 835 ml Output Total 10 ml 5 ml 5 ml Balance 805 ml 510 ml 830 ml Results Result Diagram: 11/19/16 0505 11/17/16 0349 Results 24 hrs Laboratory Tests Test 11/19/16 05:05 White Blood Count 5.0 Red Blood Count 2.41 L Hemoglobin 8.0 L Hematocrit 24.3 L Mean Corpuscular Volume 100.8 Mean Corpuscular Hemoglobin 33.2 H Mean Corpuscular Hemoglobin Concent 32.9 Red Cell Distribution Width 14.7 H Platelet Count 384 Mean Platelet Volume 9.4 Neutrophils % 51.2 Lymphocytes % 33.7 Monocytes % 13.9 H Eosinophils % 0.8 Basophils % 0.0 Nucleated Red Blood Cells % 0.0 Neutrophils # 2.6 Lymphocytes # 1.7 Monocytes # 0.7 Eosinophils # 0.0 Basophils # 0.0 Nucleated Red Blood Cells # 0.0 Medications Medications Current Medications Pantoprazole (Protonix Tab) 40 mg DAILY@06 PO Last administered on 11/19/16 04 :04; Admin Dose 40 MG; Start 11/14/16 at 06:00 Acetaminophen (Tylenol Tab) 650 mg Q6H PRN PO PAIN AND OR ELEVATED TEMP; Start 11/14/16 at 05:30 Morphine Sulfate (morphine) 2 mg Q4H PRN IV PAIN Last administered on 06:05; Admin Dose 2 MG; Start 11/14/16 at 05:30 Ondansetron HCl (Zofran Inj) 4 mg Q6H PRN IV NAUSEA AND/OR VOMITING Last administered on 11/15/16 23:34; Admin Dose 4 MG; Start 11/14/16 at 05:30 Hydromorphone HCl (Dilaudid) 1 mg Q4H PRN IV PAIN Last administered on 14:54; Admin Dose 1 MG; Start 11/14/16 at 09:30 Acetaminophen/ Hydrocodone Bitart ([place] (10/325)) 1 tab Q4H PRN PO PAIN Last administered on 11/19/16 13:41; Admin Dose 1 TAB; Start 11/14/16 at 11:30 Miscellaneous Information BACTRIM IV BID PHARM... ONCE XX ; Start 11/14/16 at 14 :30 Trimethoprim/ Sulfamethoxazole/ Dextrose (Bactrim/D5W) 515 ml @ 343.333 mls/hr Q8 IVPB Last administered on 11/19/16 13:41; Admin Dose 343.333 MLS/HR; Start 11/14/16 at 16:30 Polyethylene Glycol (Miralax) 17 gm DAILY PO Last administered on 11/19/16 09: 21; Admin Dose 17 GM; Start 11/15/16 at 20:00 Bisacodyl (Dulcolax) 10 mg BID PO Last administered on 11/19/16 09:21; Admin Dose 10 MG; Start 11/15/16 at 21:00 Docusate Sodium (Colace) 100 mg TID PO Last administered on 11/19/16 13:40; Admin Dose 100 MG; Start 11/15/16 at 21:00 Multivitamins Therapeutic (Theragran) 1 tab DAILY PO Last administered on 09:20; Admin Dose 1 TAB; Start 11/16/16 at 20:00 ADRIANA TIERNEY NP November 19, 2016 15:03
--- NOTE | 2016-11-19 19:01 | PN ---
DATE: 11/19/2016 Status postop day #1 incision and drainage of the left breast abscess. SUBJECTIVE: Feels better. OBJECTIVE: VITAL SIGNS: Stable, temperature 97.7, heart rate 100 maximum, respirations 19, blood pressure 103/ 57, saturation 100% on room air. BREASTS: Landry-Uribe drain from the axillary area in the past 24 hours has drained 20 mL of serou s fluid. Dressing was changed. Wound is clean and the drainage from the Radha drain has been mos tly serosanguineous. Still there is some erythema of the lateral aspect of the left breast. Pain a nd tenderness is much less. LABORATORY DATA: The culture from the abscess cavity grew Staph aureus. ASSESSMENT: The patient is status post partial breast mastectomy with axillary dissection for canc er of the breast, later on developed cellulitis and abscess of the partial mastectomy cavity. She r eceived antibiotics IV and eventually incision and drainage was done yesterday. Feels better. A Pe nrose drain is in place. Landry-Uribe drain is in place. Landry-Uribe is draining 20 mL per 24 h ours. PLAN: Continue current care and antibiotic IV. Whenever the Landry-Uribe drain from the axilla dr lorenzo is 10 mL or less, we are going to remove the Landry-Uribe. So patient will have the Gr[place] drain in place until the course of the antibiotic is finished per infectious disease. Dictated By: ONEL ALDANA MD PS/NTS Conf#: [id number] DID#: [id number]
[2016-11-19 20:13] VITALS: BP 101/54; RESP 19
--- NOTE | 2016-11-19 23:29 | PN ---
Date/Time of Note Date/Time of Note DATE: 11/19/16 TIME: 23:29 Assessment/Plan VTE Prophylaxis VTE Prophylaxis Intervention: other Lines/Catheters [facility] Vishnu cath Assessment/Plan Chief Complaint/Hosp Course 1. Left chest wall possible cellulitis and fluid collection, doubt abscess. 2. Left breast mastectomy, partial per patient. Other diagnoses include hypertension history, hyponatremia, hypokalemia and leukocytosis. The patient' s other diagnoses include patient has a left breast cancer status post neoadjuvant chemotherapy and left partial mastectomy and axillary dissection. The patient's other diagnoses include history of hypertension. PLAN ANTIBIOTIC per surgery Problems: Subjective 24 Hr Interval Summary Subjective hx not possible: other (S/P I ANDD) Exam/Review of Systems Vital Signs Vitals Vital Signs Date Time Temp Pulse Resp B/P Pulse Ox O2 Delivery O2 Flow Rate FiO2 11/19/16 20:13 97.9 78 19 101/54 97 11/18/16 13:10 Nasal Cannula 2.0 Intake and Output 11/18/16 11/18/16 11/19/16 15:00 23:00 07:00 Intake Total 815 ml 515 ml 835 ml Output Total 10 ml 5 ml 5 ml Balance 805 ml 510 ml 830 ml Exam Respiratory: clear to auscultation Cardiovascular: regular rate and rhythm Gastrointestinal: soft Musculoskeletal: nl extremities to inspection Extremities: normal pulses Results Result Diagram: 11/19/16 0505 11/17/16 0349 Results 24 hrs Laboratory Tests Test 11/19/16 05:05 White Blood Count 5.0 Red Blood Count 2.41 L Hemoglobin 8.0 L Hematocrit 24.3 L Mean Corpuscular Volume 100.8 Mean Corpuscular Hemoglobin 33.2 H Mean Corpuscular Hemoglobin Concent 32.9 Red Cell Distribution Width 14.7 H Platelet Count 384 Mean Platelet Volume 9.4 Neutrophils % 51.2 Lymphocytes % 33.7 Monocytes % 13.9 H Eosinophils % 0.8 Basophils % 0.0 Nucleated Red Blood Cells % 0.0 Neutrophils # 2.6 Lymphocytes # 1.7 Monocytes # 0.7 Eosinophils # 0.0 Basophils # 0.0 Nucleated Red Blood Cells # 0.0 Medications Medications Current Medications Pantoprazole (Protonix Tab) 40 mg DAILY@06 PO Last administered on 11/19/16t 04 :04; Admin Dose 40 MG; Start 11/14/16 at 06:00 Acetaminophen (Tylenol Tab) 650 mg Q6H PRN PO PAIN AND OR ELEVATED TEMP; Start 11/14/16 at 05:30 Morphine Sulfate (morphine) 2 mg Q4H PRN IV PAIN Last administered on 06:05; Admin Dose 2 MG; Start 11/14/16 at 05:30 Ondansetron HCl (Zofran Inj) 4 mg Q6H PRN IV NAUSEA AND/OR VOMITING Last administered on 11/15/16 23:34; Admin Dose 4 MG; Start 11/14/16 at 05:30 Hydromorphone HCl (Dilaudid) 1 mg Q4H PRN IV PAIN Last administered on 20:09; Admin Dose 1 MG; Start 11/14/16 at 09:30 Acetaminophen/ Hydrocodone Bitart ([place] (10/325)) 1 tab Q4H PRN PO PAIN Last administered on 11/19/16 22:42; Admin Dose 1 TAB; Start 11/14/16 at 11:30 Miscellaneous Information BACTRIM IV BID PHARM... ONCE XX ; Start 11/14/16 at 14 :30 Trimethoprim/ Sulfamethoxazole/ Dextrose (Bactrim/D5W) 515 ml @ 343.333 mls/hr Q8 IVPB Last administered on 11/19/16 21:35; Admin Dose 343.333 MLS/HR; Start 11/14/16 at 16:30 Polyethylene Glycol (Miralax) 17 gm DAILY PO Last administered on 11/19/16 09: 21; Admin Dose 17 GM; Start 11/15/16 at 20:00 Bisacodyl (Dulcolax) 10 mg BID PO Last administered on 11/19/16 20:08; Admin Dose 10 MG; Start 11/15/16 at 21:00 Docusate Sodium (Colace) 100 mg TID PO Last administered on 11/19/16 20:08; Admin Dose 100 MG; Start 11/15/16 at 21:00 Multivitamins Therapeutic (Theragran) 1 tab DAILY PO Last administered on 09:20; Admin Dose 1 TAB; Start 11/16/16 at 20:00 AURELIA ALLISON MD November 19, 2016 23:29
[2016-11-20] MEDS: HYDROmorphONE 1 MG/ML SYG IV PRN ×6 (00:16→21:59)
[2016-11-20] MEDS: HYDROCODONE/APAP (10/325) TAB PO PRN ×3 (02:54→20:25)
[2016-11-20] MEDS: PANTOPRAZOLE (EC) 40 MG TAB PO SCH (05:39)
[2016-11-20] MEDS: TRIMETHOPRIM/SULFAMETHOXAZOLE 15 ML in DEXTROSE 5% 500 ML IVPB SCH ×3 (05:39→21:50)
[2016-11-20 08:28] VITALS: BP 127/60; RESP 22
[2016-11-20] MEDS: BISACODYL (EC) 5 MG TAB PO SCH ×2 (08:34→20:25)
[2016-11-20] MEDS: DOCUSATE SODIUM 100 MG CAP PO SCH ×3 (08:34→20:25)
[2016-11-20] MEDS: ONDANSETRON 4 MG INJ IV PRN ×2 (08:34→18:10)
[2016-11-20] MEDS: POLYETHYLENE GLYCOL 17 GM PACKET PO SCH (08:34)
[2016-11-20] MEDS: MULTIVITAMINS THERAPEUTIC TAB PO SCH (08:34)
[2016-11-20 08:54] VITALS: BP 101/62; RESP 22
--- NOTE | 2016-11-20 12:25 | PN ---
DATE: Postop incision and drainage of the left wrist abscess. Postop day number 2. SUBJECTIVE: Feels better today. Still has pain, but has decreased in intensity. OBJECTIVE: VITAL SIGNS: Temperature 98.6, heart rate 88, respirations 22, blood pressure 101/62, saturation is 98% room air. Landry-Uribe drain in the left axilla has drained 25 mL serous fluid in the past 24 hours. They ar e going to keep it there. The culture that I sent from the abscess cavity during the operation has grown a scant colony of the MRSA, which is multidrug resistant, but of course, it is sensitive to Ba ctrim and patient already is on Bactrim. LABORATORIES: No blood tests done today. PLAN: Continue antibiotics and awaiting infectious disease recommendations. Dictated By: ONEL CALLAHAN/DENNIS Conf#: [id number] DID#: [id number]
--- NOTE | 2016-11-20 13:46 | CONS ---
Date/Time of Note Date/Time of Note DATE: 11/20/16 TIME: 13:45 Assessment/Plan Assessment/Plan Chief Complaint/Hosp Course SUBJECTIVE: No acute changes. No fevers. MICROBIOLOGY: Left breast culture growing MRSA ANTIMICROBIALS: IV Bactrim PHYSICAL EXAMINATION: GENERAL: Well-developed, middle-aged woman who is awake, in no distress. HEENT: Head atraumatic, normocephalic. Sclerae anicteric. Buccal mucosa dry. NECK: Supple. CHEST: Rise symmetrical. Breath sounds clear. HEART: S1, S2. ABDOMEN: Soft, bowel tones present. EXTREMITIES: No cyanosis. ASSESSMENT: 1. Left breast cellulitis/infected seroma, s/p i&d===> repeat cultures growing MRSA 2. History of breast carcinoma status post chemotherapy. 3. Systemic inflammatory response syndrome secondary to above. 4. Anemia 5. Right chest portacath. PLAN: The patient remains stable. Continue abx, ok dc on PO Bactrim for 2 weeks once cleared by surgery DW Dr John Problems: Consultation Date/Type/Reason Admit Date/Time November 14, 2016 at 02:57 Type of Consultation: ID Exam/Review of Systems Vital Signs Vitals Vital Signs Date Time Temp Pulse Resp B/P Pulse Ox O2 Delivery O2 Flow Rate FiO2 11/20/16 08:54 98.6 88 22 101/62 98 11/18/16 13:10 Nasal Cannula 2.0 Intake and Output 11/19/16 11/19/16 11/20/16 15:00 23:00 07:00 Intake Total 515 ml 1455 ml 1075 ml Output Total 20 ml 5 ml Balance 515 ml 1435 ml 1070 ml Results Result Diagram: 11/19/16 0505 11/17/16 0349 Medications Medications Current Medications Pantoprazole (Protonix Tab) 40 mg DAILY@06 PO Last administered on 11/20/16 05 :39; Admin Dose 40 MG; Start 11/14/16 at 06:00 Acetaminophen (Tylenol Tab) 650 mg Q6H PRN PO PAIN AND OR ELEVATED TEMP; Start 11/14/16 at 05:30 Morphine Sulfate (morphine) 2 mg Q4H PRN IV PAIN Last administered on 06:05; Admin Dose 2 MG; Start 11/14/16 at 05:30 Ondansetron HCl (Zofran Inj) 4 mg Q6H PRN IV NAUSEA AND/OR VOMITING Last administered on 11/20/16 08:34; Admin Dose 4 MG; Start 11/14/16 at 05:30 Hydromorphone HCl (Dilaudid) 1 mg Q4H PRN IV PAIN Last administered on 09:35; Admin Dose 1 MG; Start 11/14/16 at 09:30 Acetaminophen/ Hydrocodone Bitart ([place] (10/325)) 1 tab Q4H PRN PO PAIN Last administered on 11/20/16 11:52; Admin Dose 1 TAB; Start 11/14/16 at 11:30 Miscellaneous Information BACTRIM IV BID PHARM... ONCE XX ; Start 11/14/16 at 14 :30 Trimethoprim/ Sulfamethoxazole/ Dextrose (Bactrim/D5W) 515 ml @ 343.333 mls/hr Q8 IVPB Last administered on 11/20/16 05:39; Admin Dose 343.333 MLS/HR; Start 11/14/16 at 16:30 Polyethylene Glycol (Miralax) 17 gm DAILY PO Last administered on 11/20/16 08: 34; Admin Dose 17 GM; Start 11/15/16 at 20:00 Bisacodyl (Dulcolax) 10 mg BID PO Last administered on 11/20/16 08:34; Admin Dose 10 MG; Start 11/15/16 at 21:00 Docusate Sodium (Colace) 100 mg TID PO Last administered on 11/20/16 08:34; Admin Dose 100 MG; Start 11/15/16 at 21:00 Multivitamins Therapeutic (Theragran) 1 tab DAILY PO Last administered on 08:34; Admin Dose 1 TAB; Start 11/16/16 at 20:00 ADRIANA TIERNEY NP November 20, 2016 13:46
[2016-11-20 20:23] VITALS: BP 102/59; RESP 18
--- NOTE | 2016-11-20 23:39 | PN ---
Date/Time of Note Date/Time of Note DATE: 11/20/16 TIME: 23:38 Assessment/Plan VTE Prophylaxis VTE Prophylaxis Intervention: other Lines/Catheters [facility] Vishnu cath Urinary Cath still in place: No Assessment/Plan Chief Complaint/Hosp Course 1. Left chest wall possible cellulitis and fluid collection, doubt abscess.mrsa 2. Left breast mastectomy, partial per patient. Other diagnoses include hypertension history, hyponatremia, hypokalemia and leukocytosis. The patient' s other diagnoses include patient has a left breast cancer status post neoadjuvant chemotherapy and left partial mastectomy and axillary dissection. The patient's other diagnoses include history of hypertension. PLAN ANTIBIOTIC per surgery per id Problems: Subjective 24 Hr Interval Summary Subjective hx not possible: other Gastrointestinal: no complaints Genitourinary: no complaints Exam/Review of Systems Vital Signs Vitals Vital Signs Date Time Temp Pulse Resp B/P Pulse Ox O2 Delivery O2 Flow Rate FiO2 11/20/16 20:23 98.5 80 18 102/59 99 11/18/16 13:10 Nasal Cannula 2.0 Intake and Output 11/19/16 11/19/16 11/20/16 15:00 23:00 07:00 Intake Total 515 ml 1455 ml 1075 ml Output Total 20 ml 5 ml Balance 515 ml 1435 ml 1070 ml Exam Respiratory: clear to auscultation Cardiovascular: regular rate and rhythm Gastrointestinal: soft Musculoskeletal: nl extremities to inspection Results Result Diagram: 11/19/16 0505 11/17/16 0349 Medications Medications Current Medications Pantoprazole (Protonix Tab) 40 mg DAILY@06 PO Last administered on 11/20/16 05 :39; Admin Dose 40 MG; Start 11/14/16 at 06:00 Acetaminophen (Tylenol Tab) 650 mg Q6H PRN PO PAIN AND OR ELEVATED TEMP; Start 11/14/16 at 05:30 Morphine Sulfate (morphine) 2 mg Q4H PRN IV PAIN Last administered on 06:05; Admin Dose 2 MG; Start 11/14/16 at 05:30 Ondansetron HCl (Zofran Inj) 4 mg Q6H PRN IV NAUSEA AND/OR VOMITING Last administered on 11/20/16 18:10; Admin Dose 4 MG; Start 11/14/16 at 05:30 Hydromorphone HCl (Dilaudid) 1 mg Q4H PRN IV PAIN Last administered on 21:59; Admin Dose 1 MG; Start 11/14/16 at 09:30 Acetaminophen/ Hydrocodone Bitart ([place] (10/325)) 1 tab Q4H PRN PO PAIN Last administered on 11/20/16 20:25; Admin Dose 1 TAB; Start 11/14/16 at 11:30 Miscellaneous Information BACTRIM IV BID PHARM... ONCE XX ; Start 11/14/16 at 14 :30 Trimethoprim/ Sulfamethoxazole/ Dextrose (Bactrim/D5W) 515 ml @ 343.333 mls/hr Q8 IVPB Last administered on 11/20/16 21:50; Admin Dose 343.333 MLS/HR; Start 11/14/16 at 16:30 Polyethylene Glycol (Miralax) 17 gm DAILY PO Last administered on 11/20/16 08: 34; Admin Dose 17 GM; Start 11/15/16 at 20:00 Bisacodyl (Dulcolax) 10 mg BID PO Last administered on 11/20/16 20:25; Admin Dose 10 MG; Start 11/15/16 at 21:00 Docusate Sodium (Colace) 100 mg TID PO Last administered on 11/20/16 20:25; Admin Dose 100 MG; Start 11/15/16 at 21:00 Multivitamins Therapeutic (Theragran) 1 tab DAILY PO Last administered on 08:34; Admin Dose 1 TAB; Start 11/16/16 at 20:00 AURELIA ALLISON MD November 20, 2016 23:39
[2016-11-21] MEDS: HYDROmorphONE 1 MG/ML SYG IV PRN ×6 (02:02→23:01)
[2016-11-21 05:34] LABS: CREATININE 0.93 mg/dl (0.44-1.00)
[2016-11-21] MEDS: PANTOPRAZOLE (EC) 40 MG TAB PO SCH (06:06)
[2016-11-21] MEDS: TRIMETHOPRIM/SULFAMETHOXAZOLE 15 ML in DEXTROSE 5% 500 ML IVPB SCH ×3 (06:06→22:31)
[2016-11-21 08:09] VITALS: BP 105/69; RESP 19
[2016-11-21] MEDS: MULTIVITAMINS THERAPEUTIC TAB PO SCH (08:37)
[2016-11-21] MEDS: DOCUSATE SODIUM 100 MG CAP PO SCH ×3 (08:41→20:16)
[2016-11-21] MEDS: POLYETHYLENE GLYCOL 17 GM PACKET PO SCH (08:41)
[2016-11-21] MEDS: BISACODYL (EC) 5 MG TAB PO SCH ×2 (08:41→20:16)
--- NOTE | 2016-11-21 14:02 | CONS ---
Date/Time of Note Date/Time of Note DATE: 11/21/16 TIME: 14:02 Assessment/Plan Assessment/Plan Chief Complaint/Hosp Course SUBJECTIVE: No acute changes. Awake, feels better MICROBIOLOGY: Left breast culture growing MRSA ANTIMICROBIALS: IV Bactrim PHYSICAL EXAMINATION: GENERAL: Well-developed, middle-aged woman who is awake, in no distress. HEENT: Head atraumatic, normocephalic. Sclerae anicteric. Buccal mucosa dry. NECK: Supple. CHEST: Rise symmetrical. Breath sounds clear. HEART: S1, S2. ABDOMEN: Soft, bowel tones present. EXTREMITIES: No cyanosis. ASSESSMENT: 1. Left breast cellulitis/infected seroma, s/p i&d===> repeat cultures growing MRSA 2. History of breast carcinoma status post chemotherapy. 3. Systemic inflammatory response syndrome secondary to above. 4. Anemia 5. Right chest portacath. PLAN: The patient remains stable. Ok dc on PO Bactrim for 2 weeks once cleared by surgery DW patient Problems: Consultation Date/Type/Reason Admit Date/Time November 14, 2016 at 02:57 Type of Consultation: ID Exam/Review of Systems Vital Signs Vitals Vital Signs Date Time Temp Pulse Resp B/P Pulse Ox O2 Delivery O2 Flow Rate FiO2 11/21/16 08:09 98.6 83 19 105/69 98 11/18/16 13:10 Nasal Cannula 2.0 Intake and Output 11/20/16 11/20/16 11/21/16 15:00 23:00 07:00 Intake Total 515 ml 1155 ml 1055 ml Output Total 5 ml Balance 515 ml 1150 ml 1055 ml Results Result Diagram: 11/19/16 0505 11/21/16 0435 Results 24 hrs Laboratory Tests Test 11/21/16 04:35 Blood Urea Nitrogen 5 L Creatinine 0.93 Medications Medications Current Medications Pantoprazole (Protonix Tab) 40 mg DAILY@06 PO Last administered on 11/21/16 06 :06; Admin Dose 40 MG; Start 11/14/16 at 06:00 Acetaminophen (Tylenol Tab) 650 mg Q6H PRN PO PAIN AND OR ELEVATED TEMP; Start 11/14/16 at 05:30 Morphine Sulfate (morphine) 2 mg Q4H PRN IV PAIN Last administered on 06:05; Admin Dose 2 MG; Start 11/14/16 at 05:30 Ondansetron HCl (Zofran Inj) 4 mg Q6H PRN IV NAUSEA AND/OR VOMITING Last administered on 11/20/16 18:10; Admin Dose 4 MG; Start 11/14/16 at 05:30 Hydromorphone HCl (Dilaudid) 1 mg Q4H PRN IV PAIN Last administered on 10:55; Admin Dose 1 MG; Start 11/14/16 at 09:30 Acetaminophen/ Hydrocodone Bitart ([place] (10/325)) 1 tab Q4H PRN PO PAIN Last administered on 11/20/16 20:25; Admin Dose 1 TAB; Start 11/14/16 at 11:30 Miscellaneous Information BACTRIM IV BID PHARM... ONCE XX ; Start 11/14/16 at 14 :30 Trimethoprim/ Sulfamethoxazole/ Dextrose (Bactrim/D5W) 515 ml @ 343.333 mls/hr Q8 IVPB Last administered on 11/21/16 06:06; Admin Dose 343.333 MLS/HR; Start 11/14/16 at 16:30 Polyethylene Glycol (Miralax) 17 gm DAILY PO Last administered on 11/20/16 08: 34; Admin Dose 17 GM; Start 11/15/16 at 20:00 Bisacodyl (Dulcolax) 10 mg BID PO Last administered on 11/20/16 20:25; Admin Dose 10 MG; Start 11/15/16 at 21:00 Docusate Sodium (Colace) 100 mg TID PO Last administered on 11/20/16 20:25; Admin Dose 100 MG; Start 11/15/16 at 21:00 Multivitamins Therapeutic (Theragran) 1 tab DAILY PO Last administered on 08:37; Admin Dose 1 TAB; Start 11/16/16 at 20:00 ADRIANA TIERNEY NP November 21, 2016 14:02
--- NOTE | 2016-11-21 16:17 | PN ---
DATE: 11/21/2016 FOLLOWUP: Status post incision and drainage of the left breast abscess, status post left partial mas tectomy and axillary dissection. SUBJECTIVE: States that the pain is less, even though she has been getting Dilaudid 1 mg every 4 to 5 hours. OBJECTIVE: VITAL SIGNS: Temperature 98.6, heart rate 83, respirations 19, blood pressure 105/69, saturation 98 % on room air. LABORATORY DATA: BUN, creatinine within normal limits. Sodium, potassium within normal limits. [place] kson-Uribe in the axilla has been draining serous fluid, fluctuating between 5 to 20, 10, 25, 5 and 5 mL. ASSESSMENT AND PLAN: The patient with left breast cellulitis and abscess. The culture from his caridad maddox has grown Staph aureus and MRSA. The patient on bacteremia which is sensitive for the bacteria . The Landry-Uribe drain in the axilla is draining serous fluid and past 48 hours, has been 5 mL ev josse day. PLAN: If continues to drain less than 10 mL by tomorrow. I am going to remove the Landry-Uribe dr lamar from the left axilla. The patient has a Radha drain in the abscess cavity. The patient then ca n be discharged home if it is okay with infectious disease and primary care, admitting physician. To be followed by Dr. Gustafson in the office. Dictated By: ONEL ALDANA MD PS/NTS Conf#: [id number] DID#: [id number]
--- NOTE | 2016-11-21 17:15 | PDOCDIS ---
Discharge Instructions CONDITION Patient Condition: Stable HOME CARE INSTRUCTIONS: Special Diet: regular ACTIVITY: Activity Restrictions: Slowly Increase Activity FOLLOW UP/APPOINTMENTS Appointments f/u dr moon/dr morales [address] zapata 1 wk AURELIA ALLISON MD November 21, 2016 17:15
[2016-11-21] MEDS ORDERED: SULF1TAB31 PO (17:18)
[2016-11-21] MEDS ORDERED: BISA5TAB6 PO (17:18)
[2016-11-21] MEDS ORDERED: MULTI PO (17:18)
[2016-11-21] MEDS ORDERED: DOCU-216 PO (17:18)
[2016-11-21] MEDS ORDERED: POLY17PO6 PO (17:18)
[2016-11-21] MEDS ORDERED: Hydrocodone/Apap (10/325) PO (17:18)
--- NOTE | 2016-11-21 19:02 | PN ---
Date/Time of Note Date/Time of Note DATE: 11/21/16 TIME: 19:01 Assessment/Plan VTE Prophylaxis VTE Prophylaxis Intervention: other Lines/Catheters [facility] keke cath Urinary Cath still in place: No Assessment/Plan Chief Complaint/Hosp Course 1. Left chest wall possible cellulitis and fluid collection, doubt abscess.mrsa 2. Left breast mastectomy, partial per patient. Other diagnoses include hypertension history, hyponatremia, hypokalemia and leukocytosis. The patient' s other diagnoses include patient has a left breast cancer status post neoadjuvant chemotherapy and left partial mastectomy and axillary dissection. The patient's other diagnoses include history of hypertension. PLAN ANTIBIOTIC per surgery per id HOME Problems: Subjective 24 Hr Interval Summary Respiratory: no complaints Cardiovascular: no complaints Exam/Review of Systems Vital Signs Vitals Vital Signs Date Time Temp Pulse Resp B/P Pulse Ox O2 Delivery O2 Flow Rate FiO2 11/21/16 08:09 98.6 83 19 105/69 98 11/18/16 13:10 Nasal Cannula 2.0 Intake and Output 11/20/16 11/20/16 11/21/16 15:00 23:00 07:00 Intake Total 515 ml 1155 ml 1055 ml Output Total 5 ml Balance 515 ml 1150 ml 1055 ml Exam Respiratory: clear to auscultation Cardiovascular: regular rate and rhythm Gastrointestinal: soft Musculoskeletal: nl extremities to inspection Extremities: normal pulses Results Result Diagram: 11/19/16 0505 11/21/16 0435 Results 24 hrs Laboratory Tests Test 11/21/16 04:35 Blood Urea Nitrogen 5 L Creatinine 0.93 Medications Medications Current Medications Pantoprazole (Protonix Tab) 40 mg DAILY@06 PO Last administered on 11/21/16 06 :06; Admin Dose 40 MG; Start 11/14/16 at 06:00 Acetaminophen (Tylenol Tab) 650 mg Q6H PRN PO PAIN AND OR ELEVATED TEMP; Start 11/14/16 at 05:30 Morphine Sulfate (morphine) 2 mg Q4H PRN IV PAIN Last administered on 06:05; Admin Dose 2 MG; Start 11/14/16 at 05:30 Ondansetron HCl (Zofran Inj) 4 mg Q6H PRN IV NAUSEA AND/OR VOMITING Last administered on 11/20/16 18:10; Admin Dose 4 MG; Start 11/14/16 at 05:30 Acetaminophen/ Hydrocodone Bitart ([place] (10/325)) 1 tab Q4H PRN PO PAIN Last administered on 11/20/16 20:25; Admin Dose 1 TAB; Start 11/14/16 at 11:30 Miscellaneous Information BACTRIM IV BID PHARM... ONCE XX ; Start 11/14/16 at 14 :30 Trimethoprim/ Sulfamethoxazole/ Dextrose (Bactrim/D5W) 515 ml @ 343.333 mls/hr Q8 IVPB Last administered on 11/21/16 14:08; Admin Dose 343.333 MLS/HR; Start 11/14/16 at 16:30 Polyethylene Glycol (Miralax) 17 gm DAILY PO Last administered on 11/20/16 08: 34; Admin Dose 17 GM; Start 11/15/16 at 20:00 Bisacodyl (Dulcolax) 10 mg BID PO Last administered on 11/20/16 20:25; Admin Dose 10 MG; Start 11/15/16 at 21:00 Docusate Sodium (Colace) 100 mg TID PO Last administered on 11/20/16 20:25; Admin Dose 100 MG; Start 11/15/16 at 21:00 Multivitamins Therapeutic (Theragran) 1 tab DAILY PO Last administered on 08:37; Admin Dose 1 TAB; Start 11/16/16 at 20:00 Hydromorphone HCl (Dilaudid) 0.5 mg Q3 PRN IV PAIN Last administered on 18:35; Admin Dose 0.5 MG; Start 11/21/16 at 16:00 AURELIA ALLISON MD November 21, 2016 19:02
[2016-11-21] MEDS: HYDROCODONE/APAP (10/325) TAB PO PRN (19:53)
[2016-11-21 20:47] VITALS: BP 103/58; RESP 18
[2016-11-21] MEDS: morphine 2 MG INJ IV PRN (21:44)
[2016-11-22] MEDS: HYDROCODONE/APAP (10/325) TAB PO PRN ×3 (04:05→18:11)
[2016-11-22] MEDS: PANTOPRAZOLE (EC) 40 MG TAB PO SCH (06:01)
[2016-11-22] MEDS: HYDROmorphONE 1 MG/ML SYG IV PRN ×4 (06:01→16:47)
[2016-11-22] MEDS: TRIMETHOPRIM/SULFAMETHOXAZOLE 15 ML in DEXTROSE 5% 500 ML IVPB SCH ×2 (06:01→14:07)
[2016-11-22 07:05] VITALS: BP 104/57; RESP 16
[2016-11-22] MEDS: MULTIVITAMINS THERAPEUTIC TAB PO SCH (08:43)
[2016-11-22] MEDS: DOCUSATE SODIUM 100 MG CAP PO SCH ×2 (08:44→12:34)
[2016-11-22] MEDS: POLYETHYLENE GLYCOL 17 GM PACKET PO SCH (08:44)
[2016-11-22] MEDS: BISACODYL (EC) 5 MG TAB PO SCH (08:44)
--- NOTE | 2016-11-22 11:21 | PN ---
Date/Time of Note Date/Time of Note DATE: 11/22/16 TIME: 11:18 Assessment/Plan VTE Prophylaxis VTE Prophylaxis Intervention: ambulation Lines/Catheters IV Catheter Type (from Nrs): keke cath Central line still needed: Yes Urinary Cath still in place: No Assessment/Plan Chief Complaint/Hosp Course 1. Left chest wall cellulitis and fluid collection, resolved 2. Left breast partial mastectomy 3. Hypertension 4. Leukocytosis.resolved Problems: Assessment/Plan 1. Discharge home Subjective 24 Hr Interval Summary Constitutional: improved, no complaints Respiratory: no complaints Genitourinary: no complaints Musculoskeletal: no complaints Exam/Review of Systems Vital Signs Vitals Vital Signs Date Time Temp Pulse Resp B/P Pulse Ox O2 Delivery O2 Flow Rate FiO2 11/22/16 07:05 98.0 82 16 104/57 96 11/18/16 13:10 Nasal Cannula 2.0 Intake and Output 11/21/16 11/21/16 11/22/16 15:00 23:00 07:00 Intake Total 515 ml 1295 ml 965 ml Output Total 5 ml 0 ml Balance 510 ml 1295 ml 965 ml Exam Constitutional: alert, oriented Psych: no complaints Neck: non-tender, supple Respiratory: clear to auscultation Cardiovascular: regular rate and rhythm Genitourinary - Female: nl external genitalia Neurological: other (CALOS removed) Results Result Diagram: 11/19/16 0505 11/21/16 0435 Medications Medications Current Medications Pantoprazole (Protonix Tab) 40 mg DAILY@06 PO Last administered on 11/22/16 06 :01; Admin Dose 40 MG; Start 11/14/16 at 06:00 Acetaminophen (Tylenol Tab) 650 mg Q6H PRN PO PAIN AND OR ELEVATED TEMP; Start 11/14/16 at 05:30 Morphine Sulfate (morphine) 2 mg Q4H PRN IV PAIN Last administered on 21:44; Admin Dose 2 MG; Start 11/14/16 at 05:30 Ondansetron HCl (Zofran Inj) 4 mg Q6H PRN IV NAUSEA AND/OR VOMITING Last administered on 11/20/16 18:10; Admin Dose 4 MG; Start 11/14/16 at 05:30 Acetaminophen/ Hydrocodone Bitart ([place] (10/325)) 1 tab Q4H PRN PO PAIN Last administered on 11/22/16 10:51; Admin Dose 1 TAB; Start 11/14/16 at 11:30 Miscellaneous Information BACTRIM IV BID PHARM... ONCE XX ; Start 11/14/16 at 14 :30 Trimethoprim/ Sulfamethoxazole/ Dextrose (Bactrim/D5W) 515 ml @ 343.333 mls/hr Q8 IVPB Last administered on 11/22/16 06:01; Admin Dose 343.333 MLS/HR; Start 11/14/16 at 16:30 Polyethylene Glycol (Miralax) 17 gm DAILY PO Last administered on 11/20/16 08: 34; Admin Dose 17 GM; Start 11/15/16 at 20:00 Bisacodyl (Dulcolax) 10 mg BID PO Last administered on 11/20/16 20:25; Admin Dose 10 MG; Start 11/15/16 at 21:00 Docusate Sodium (Colace) 100 mg TID PO Last administered on 11/20/16 20:25; Admin Dose 100 MG; Start 11/15/16 at 21:00 Multivitamins Therapeutic (Theragran) 1 tab DAILY PO Last administered on 08:43; Admin Dose 1 TAB; Start 11/16/16 at 20:00 Hydromorphone HCl (Dilaudid) 0.5 mg Q3 PRN IV PAIN Last administered on 08:44; Admin Dose 0.5 MG; Start 11/21/16 at 16:00 ISAURA BOCANEGRA November 22, 2016 11:21
--- NOTE | 2016-11-22 11:22 | PDOCDIS ---
Discharge Instructions CONDITION Patient Condition: Good HOME CARE INSTRUCTIONS: Diet Instructions: RegularSpecial Diet: regular ACTIVITY: Activity Restrictions: Slowly Increase Activity Bathing Restrictions: Sponge Bath FOLLOW UP/APPOINTMENTS Appointments 1. Dr Gustafson 1 week PCP 1 week OTHER ORDERS: Other Orders: dressing changes as needed SCHOOL/WORK RELEASE May return to School/Work with: With Restrictions (2 weeks) ISAURA BOCANEGRA November 22, 2016 11:22
--- NOTE | 2016-11-22 11:36 | PN ---
DATE: 11/22/2016 SUBJECTIVE: No new complaints, feels better. OBJECTIVE: VITAL SIGNS: Temperature 98, heart rate 82 and regular, respirations 16, blood pressure 104/57, sat uration 96% on room air. GENERAL: Patient is alert, awake, oriented, does not appear in any acute distress. HEART: Regular, lungs clear. ABDOMEN: Soft. Landry-Uribe which is in the axillary cavity area has been draining 5 mL per 24 hour in the past 3 days consecutively and it is serous fluid. Therefore, there is a good indication to remove it and I will remove it today. Actually dressing was changed and there is no cellulitis. The [place] drain is in place, it is draining serosanguineous fluid. Landry-Uribe drain was removed easily and dry s terile dressing was applied. LABORATORY DATA: No hematology today. No chemistry today. PLAN: The patient can be discharged from a surgical point of view today. She should take antibiotic s for continuation of treatment of cellulitis and breast abscess which has grown staph and MRSA. The antibiotic and the duration will be determined by the infectious disease colleagues. The patient sh ould be followed in the office by Dr. Gustafson and instruction was given to call the office and make an appointment for followup next week. Dictated By: ONEL CALLAHAN/DENNIS Conf#: [id number] DID#: [id number]
[2016-11-22] MEDS ORDERED: HEPARIN (100 UNITS/ML) 5 ML SYG CATHETER ONE (16:00)
== END 2016-11-22 18:37 | disposition home health service (06) | DRG 863 ==
LOC: E/R 23:13 → PP2 11-14 02:57
PROVIDERS: ADMIT Internal Medicine Nephrology; ATTEND Internal Medicine Nephrology
PROC: 0H9U00Z Drainage of Left Breast with Drainage Device, Open Approach (ICD-10-PCS; principal; 2016-11-18 15:30)
DX: T81.4XXA Infection following a procedure, initial encounter (principal); C50.912 Malignant neoplasm of unspecified site of left female breast; E87.1 Hypo-osmolality and hyponatremia; L76.34 Postprocedural seroma of skin and subcutaneous tissue following other procedure; I10 Essential (primary) hypertension; B95.61 Methicillin susceptible Staphylococcus aureus infection as the cause of diseases classified elsewhere; E87.6 Hypokalemia; N61.0 Mastitis without abscess; D72.829 Elevated white blood cell count, unspecified; Z79.899 Other long term (current) drug therapy
CPT/HCPCS: 36415; 71010; 80048; 80053; 80202; 81001; 81003; 82565; 83605; 84520; 84703; 85025; 85610; 85730; 87040; 87070; 87081; 87086; 93005; 96374; 96375; J0696; J0780; J1100; J1170; J1642; J2175; J2250; J2270; J2370; J2405; J2543; J3010; J3370; J7030; J7040; J7050; J7060

== ENCOUNTER → 2017-08-14 | Outpatient (CLI) | END | disposition home or self-care (01) ==